=== PATIENT | female | born 1940 | race Caucasian/White ===

== ENCOUNTER 2018-03-26 13:36 | Inpatient (IN) ==
--- NOTE | 2018-03-26 14:41 | Emergency Department Note ---
Disposition Clinical Impression: Accelerated hypertension, Hypertensive urgency Disposition: Admitted As Inpatient Condition: Fair Time of Disposition: 18:36 General Adult HPI - General Chief complaint: ED General Medical Stated complaint: htn/dizziness Time Seen by Provider: 03/26/18 14:04 Source: patient Limitations: no limitations Nursing Notes Reviewed: Yes Vital Signs Reviewed: Yes - History of Present Illness HPI Narrative: 77-year-old female history of hypertension and endometrial cancer s/p hysterectomy and chemoradiation presents an emergency department for elevated blood pressure and lightheadedness. Patient was at the cancer center for her six-month follow up with Dr. Ray. Patient had a significantly elevated blood pressure there. Was sent here for further evaluation and she has been complaining of a headache as well as lightheadedness nearly fainting a few times over the past few weeks. Patient reports her blood pressure typically runs high in about a week ago was seen at her primary care physician's office where those also high greater than 200 and was placed on additional medication losartan. Patient states she is been taken her blood pressure medications as prescribed but continues to have elevated blood pressure readings. She states about a week ago while at a outdoor event she felt lightheaded when she stood up in required to sit down prior to falling or passing out. She states almost every time she stands up she needs to wait a few seconds she feels lightheaded. At one point she does state that she has not dizziness with room spinning that has resulted 2 weeks ago. She reports a history of vertigo. She denies any fall ahead injury. Denies any blurry vision. Denies any kidney issues. No issues with urination. Denies any chest pain or shortness of breath. Denies any recent illness. Since her radiation to her pelvic region she has had issues with diarrhea. Reports a normal diet. Her antihypertensive medications including his losartan and metoprolol. Her blood pressure is significantly elevated here systolic 220. Her heart rate is in the 60s to 70s. Denies history of stroke. Pain Scale: 6 - Related Data Home Medications Medication Instructions Recorded Confirmed Diphenoxylate/Atropine [Lomotil] 1 each PO QID PRN 08/18/15 03/26/18 Alendronate Sodium [Fosamax] 70 mg PO QWEEK 02/13/17 03/26/18 Ferrous Sulfate [Iron] 325 mg PO DAILY 02/13/17 03/26/18 Magnesium Oxide [Magnesium] 250 mg PO DAILY 02/13/17 03/26/18 Metoprolol XL (24 HR) Succ [Toprol 100 mg PO DAILY 02/13/17 03/26/18 XL] Potassium Chloride [K-Tab ER] 20 meq PO TID PRN 02/13/17 03/26/18 Aspirin [Lo-Dose Aspirin EC] 81 mg PO DAILY 03/26/18 03/26/18 Valsartan [Valsartan] 40 mg PO DAILY 03/26/18 03/26/18 Previous Rx's Medication Instructions Recorded Calcium Carbonate/Vitamin D3 1 each PO BID #60 capsule 03/27/17 [Calcium 600 + Vit D Softgel] Letrozole [Femara] 2.5 mg PO DAILY #30 tablet 03/27/17 Oxycodone HCl [Oxaydo] 5 mg PO HS PRN #30 tablet.orl 03/27/17 Cyanocobalamin (B-12) [Vitamin B12] 1,000 mcg IM QMONTH #1 vial 09/25/17 Allergies Allergy/AdvReac Type Severity Reaction Status Date / Time doxorubicin AdvReac Unknown unknown Verified 03/26/18 17:13 All systems ED: reviewed and negative except as stated. Review of Systems: As Per HPI Constitutional: Denies: fever, chills, weakness Eyes: Denies: vision change ENT ED: Denies: congestion Cardiovascular: Denies: chest pain, palpitations, dyspnea on exertion, syncope Respiratory: Denies: cough, dyspnea Gastrointestinal: Denies: abdominal pain, nausea, vomiting Past Medical History - Past Medical History Attestation: Yes The following information was validated with the patient. Source: patient Medical history: Reports: arthritis, cancer, hypertension, kidney stones, other Surgical history: Reports: cancer surgery, hysterectomy, orthopedic, other Psychiatric history: Reports: no psych history - Social History Smoking Status: Never smoker Smokeless Tobacco Status: No Alcohol use: Reports: none Drug use: Reports: none Physical Exam - General Limitations: no limitations General appearance: alert - Head Head exam: atraumatic, normocephalic, normal inspection - Eye Eye exam: Present: normal appearance, PERRL, EOMI - ENT ENT exam: normal exam, normal oropharynx, mucous membranes moist - Neck Neck exam: Present: normal inspection, full ROM, trachea midline - Chest Chest inspection: Present: normal inspection, symmetric chest wall rise. Absent : tenderness, rash - Respiratory Respiratory exam: Present: normal lung sounds bilaterally. Absent: respiratory distress, wheezes - Cardiovascular Cardiovascular exam: Present: regular rate, normal rhythm, normal heart sounds. Absent: systolic murmur, diastolic murmur - Expanded Cardiovascular Exam Peripheral pulses: 2+: radial (R), radial (L) - Abdominal Exam Abdominal exam: Present: soft, Non-Tender, normal bowel sounds. Absent: tenderness, distention, guarding, rebound, rigidity - Extremities Exam Extremities exam: Present: normal inspection, full ROM, normal capillary refill. Absent: tenderness, pedal edema - Back Exam Back exam: Present: normal inspection, full ROM. Absent: tenderness - Neurological Exam Neurological exam: Present: alert, oriented X3, CN II-XII intact - Expanded Neurological Exam Patient oriented to: Present: person, place, time Speech: Present: fluid speech Cranial nerves: EOM function (II, III, IV, ): Normal, facial sensation (V): Normal, facial palsy (VII): Normal, gag reflex (IX): Normal, spinal accessory function (XI): Normal, tongue deviation (XII): Normal Motor strength - LUE: 5/5 Motor strength - RUE: 5/5 Motor strength - LLE: 5/5 Motor strength - RLE: 5/5 Upper motor neuron exam: ryan neglect: Absent bilaterally, pronator drift: Absent bilaterally Sensory exam upper extremity: light touch: Normal Sensory exam lower extremity: light touch: Normal - Psychiatric Psychiatric exam: Present: normal affect, normal mood - Skin Skin exam: Present: warm, dry, intact, normal color. Absent: rash, cyanosis, diaphoresis Course Course Narrative: Patient does not appear dehydrated. Mucosal membranes are moist. Heart is regular rate and rhythm. Neurologic exam is normal without any focal neural deficits. No neck pain. She has some baseline weakness or lower extremities which she attributes to her bad knees. She has a history of a prior right total knee replacement. Given reports of near syncopal episodes over the past few weeks will get a chest x-ray basic labs in EKG including a CT of the head. Patient is agreeable to this plan. Any signs of an organ damage we will aggressively lower the blood pressure. - Reevaluation(s) Reevaluation #1: CT of the head did not reveal any intracranial abnormality. Patient does report some ringing in the years that she describes as crickets. This is been ongoing for past several weeks. She does report some changes in her hearing. She takes aspirin daily basis but not more. She denies any dizziness. Review for labs unremarkable. No signs of an organ damage. Troponin lesson 0.03. Creatinine within normal limits. Patient was able to urinate without difficulty. Neurologic exam without any focal neural deficits. Patient will require further monitoring and management of her blood pressure as it has remained significantly high over the past several days. Will attempt to lower her blood pressure slowly and gradually to a goal of systolic 160 to 180. Patient will be placed on the nicardipine drip. Impression is hypertensive urgency. - Consultations Consultation #1: Spoke with on-call hospitalist celestino Petty to admit for accelerated hypertension and hypertensive urgency. No further orders at this time Agree with placement to step down unit with close monitoring of BP to goal of SBP 180. Patient placed on Nicardipine drip after Clonidine brought SBP to 206. Time: 18:36 Vital Signs Temperature 98.2 F 03/26/18 13:55 Pulse Rate 65 03/26/18 13:55 Respiratory Rate 66 03/26/18 13:55 Blood Pressure 224/98 03/26/18 13:55 O2 Sat by Pulse Oximetry 98 03/26/18 13:55 Temperature 98.2 F 03/26/18 13:55 Pulse Rate 63 03/26/18 19:59 Respiratory Rate 16 03/26/18 19:59 Blood Pressure 113/61 03/26/18 19:59 O2 Sat by Pulse Oximetry 95 03/26/18 19:59 Oxygen Delivery Oxygen Delivery Room Air Medical Decision Making - MDM Narrative Medical decision making narrative: Patient was discussed with my attending physician who agrees with ED management and final disposition. They independently evaluated the patient. Please refer to their attestation to this encounter for additional information. This note was generated by [employer] voice recognition software and as a result grammatical or spelling errors may occur using this program. - Medical Records Medical records reviewed: Yes I reviewed the patient's medical records. - Lab Data Lab results reviewed: Yes I reviewed the patient's lab results. Result diagrams: 03/26/18 19:28 03/26/18 15:15 Lab Results 03/26/18 03/26/1803/26/18 Range/Units 15:15 15:15 15:15 WBC (4.3-11.1) K/mcL RBC (3.82-4.97) M/mcL Hgb (11.5-15.4) g/dL Hct (35.3-44.9) % MCV (83.0-100.0) fL MCH (28.0-33.3) pg MCHC (31.6-35.5) g/dL RDW (11.5-14.5) % Plt Count (140-400) K/mcL MPV (9.4-12.4) fL Immature Gran % (0-4) % Seg Neutrophils % % Lymphocytes % % Monocytes % % Eosinophils % % Basophils % % Neutrophils # (1.6-8.9) K/mcL Lymphocytes # (0.6-4.6) K/mcL Monocytes # (0.0-1.3) K/mcL Eosinophils # (0.0-0.6) K/mcL Basophils # (0.0-0.2) K/mcL PT 11.0 (9.4-12.1) Seconds INR 1.0 APTT 29.8 (26.0-36.0) Seconds Sodium 141 (136-145) mEq/L Potassium 3.5 (3.5-5.1) mEq/L Chloride 106 (98-107) mEq/L Carbon Dioxide 27 (23-29) mEq/L BUN 18 (8-23) mg/dL Creatinine 0.87 (0.60-1.20) mg/dL Est GFR ( Amer) > 60 (> 60) Est GFR (Non-Af Amer) > 60 (> 60) BUN/Creatinine Ratio 21 (6-26) Glucose 96 (70-105) mg/dL Calculated Osmolality 294 (280-300) Calcium 9.9 (8.6-10.3) mg/dL Total Bilirubin 0.5 (0.3-1.0) mg/dL Direct Bilirubin 0.1 (0.0-0.2) mg/dL Indirect Bilirubin 0.4 (0.0-1.2) mg/dL AST 15 (13-39) Units/L ALT 16 (7-52) Units/L Alkaline Phosphatase 87 (34-104) Units/L Troponin I < 0.03 (< 0.04) ng/mL B-Natriuretic Peptide 100 H (Less than 100) pg/mL Serum Total Protein 7.2 (6.4-8.9) g/dL Albumin 4.2 (3.5-5.7) g/dL Globulin 3.0 (2.4-3.5) g/dL Albumin/Globulin Ratio 1.4 (1.1-2.2) 03/26/18 Range/Units 19:28 WBC 6.7 (4.3-11.1) K/mcL RBC 4.76 (3.82-4.97) M/mcL Hgb 13.5 (11.5-15.4) g/dL Hct 40.1 (35.3-44.9) % MCV 84.2 (83.0-100.0) fL MCH 28.4 (28.0-33.3) pg MCHC 33.7 (31.6-35.5) g/dL RDW 13.8 (11.5-14.5) % Plt Count 252 (140-400) K/mcL MPV 10.0 (9.4-12.4) fL Immature Gran % 0.4 (0-4) % Seg Neutrophils % 68.7 % Lymphocytes % 21.7 % Monocytes % 6.4 % Eosinophils % 2.2 % Basophils % 0.6 % Neutrophils # 4.6 (1.6-8.9) K/mcL Lymphocytes # 1.5 (0.6-4.6) K/mcL Monocytes # 0.4 (0.0-1.3) K/mcL Eosinophils # 0.2 (0.0-0.6) K/mcL Basophils # 0.0 (0.0-0.2) K/mcL PT (9.4-12.1) Seconds INR APTT (26.0-36.0) Seconds Sodium (136-145) mEq/L Potassium (3.5-5.1) mEq/L Chloride (98-107) mEq/L Carbon Dioxide (23-29) mEq/L BUN (8-23) mg/dL Creatinine (0.60-1.20) mg/dL Est GFR ( Amer) (> 60) Est GFR (Non-Af Amer) (> 60) BUN/Creatinine Ratio (6-26) Glucose (70-105) mg/dL Calculated Osmolality (280-300) Calcium (8.6-10.3) mg/dL Total Bilirubin (0.3-1.0) mg/dL Direct Bilirubin (0.0-0.2) mg/dL Indirect Bilirubin (0.0-1.2) mg/dL AST (13-39) Units/L ALT (7-52) Units/L Alkaline Phosphatase (34-104) Units/L Troponin I (< 0.04) ng/mL B-Natriuretic Peptide (Less than 100) pg/mL Serum Total Protein (6.4-8.9) g/dL Albumin (3.5-5.7) g/dL Globulin (2.4-3.5) g/dL Albumin/Globulin Ratio (1.1-2.2) - Radiology Data Radiology results reviewed: Yes I reviewed the patient's radiology results. Chest X-Ray 03/26/18 14:01 IMPRESSION: No acute findings in the chest. D/ / Aries Colón MD / Aries Colón MD Interpreting Provider: Aries Colón MD Head CT 03/26/18 14:38 IMPRESSION: No acute intracranial abnormality. Diffuse atrophic changes with findings suggesting chronic microvascular ischemia D/ / Aries Reyes MD / Aries Reyes MD Interpreting Provider: Aries Reyes MD - EKG Data EKG #1 EKG attestation: Yes I reviewed and interpreted this EKG. EKG results narrative: EKG performed 1417 normal sinus rhythm 62 bpm, left atrial enlargement, no ST elevation or depression, no T-wave version. Intervals appear within normal limits. No acute ischemic changes. No old EKG available for comparison at this time.
[2018-03-26 15:52] LABS: Activated Partial Thrombo Time 29.8 Seconds (26.0-36.0); Alanine Aminotransferase 16 Units/L (7-52); Albumin 4.2 g/dL (3.5-5.7); Albumin/Globulin Ratio 1.4 (1.1-2.2); Alkaline Phosphatase 87 Units/L (34-104); Aspartate Amino Transferase 15 Units/L (13-39); BUN/Creatinine Ratio 21 (6-26); Bilirubin,Direct 0.1 mg/dL (0.0-0.2); Bilirubin,Indirect 0.4 mg/dL (0.0-1.2); Bilirubin,Total 0.5 mg/dL (0.3-1.0); Blood Urea Nitrogen 18 mg/dL (8-23); Calcium 9.9 mg/dL (8.6-10.3); Carbon Dioxide 27 mEq/L (23-29); Chloride 106 mEq/L (98-107); Glucose 96 mg/dL (70-105); Osmolality,Calculated 294 (280-300); Potassium 3.5 mEq/L (3.5-5.1); Sodium 141 mEq/L (136-145); Total Protein 7.2 g/dL (6.4-8.9); Troponin I < 0.03 ng/mL (< 0.04); eGFR For African Americans > 60 (> 60); eGFR For Non-African Americans > 60 (> 60)
[2018-03-26] MEDS ORDERED: cloNIDine HCl 0.1 MG TABLET PO ONE (16:06)
--- NOTE | 2018-03-26 18:36 | Emergency Department Note ---
Disposition Clinical Impression: Hypertensive urgency Disposition: Admitted As Inpatient Condition: Fair Referrals: Honorio Black MD [Primary Care Provider] - Forms: ED Satisfaction Letter, Work/School Release General Adult HPI - General Chief complaint: ED General Medical Stated complaint: htn/dizziness Time Seen by Provider: 03/26/18 14:04 Source: patient Mode of arrival: ambulatory Limitations: no limitations Nursing Notes Reviewed: Yes Vital Signs Reviewed: Yes - History of Present Illness Pain Scale: 6 - Related Data Home Medications Medication Instructions Recorded Confirmed Diphenoxylate/Atropine [Lomotil] 1 each PO QID PRN 08/18/15 03/26/18 Alendronate Sodium [Fosamax] 70 mg PO QWEEK 02/13/17 03/26/18 Ferrous Sulfate [Iron] 325 mg PO DAILY 02/13/17 03/26/18 Magnesium Oxide [Magnesium] 250 mg PO DAILY 02/13/17 03/26/18 Metoprolol XL (24 HR) Succ [Toprol 100 mg PO DAILY 02/13/17 03/26/18 XL] Potassium Chloride [K-Tab ER] 20 meq PO TID PRN 02/13/17 03/26/18 Aspirin [Lo-Dose Aspirin EC] 81 mg PO DAILY 03/26/18 03/26/18 Valsartan [Valsartan] 40 mg PO DAILY 03/26/18 03/26/18 Previous Rx's Medication Instructions Recorded Calcium Carbonate/Vitamin D3 1 each PO BID #60 capsule 03/27/17 [Calcium 600 + Vit D Softgel] Letrozole [Femara] 2.5 mg PO DAILY #30 tablet 03/27/17 Oxycodone HCl [Oxaydo] 5 mg PO HS PRN #30 tablet.orl 03/27/17 Cyanocobalamin (B-12) [Vitamin B12] 1,000 mcg IM QMONTH #1 vial 09/25/17 Allergies Allergy/AdvReac Type Severity Reaction Status Date / Time doxorubicin AdvReac Unknown unknown Verified 03/26/18 17:13 Constitutional: Denies: fever, chills, weakness Eyes: Denies: vision change ENT ED: Denies: congestion Cardiovascular: Denies: chest pain, palpitations, dyspnea on exertion, syncope Respiratory: Denies: cough, dyspnea Gastrointestinal: Denies: abdominal pain, nausea, vomiting Past Medical History - Past Medical History Medical history: Reports: arthritis, cancer, hypertension, kidney stones, other Surgical history: Reports: cancer surgery, hysterectomy, orthopedic, other Psychiatric history: Reports: no psych history - Social History Smoking Status: Never smoker Smokeless Tobacco Status: No Alcohol use: Reports: none Drug use: Reports: none Physical Exam - General Limitations: no limitations General appearance: alert Course Vital Signs Temperature 98.2 F 03/26/18 13:55 Pulse Rate 65 03/26/18 13:55 Respiratory Rate 66 03/26/18 13:55 Blood Pressure 224/98 03/26/18 13:55 O2 Sat by Pulse Oximetry 98 03/26/18 13:55 Temperature 98.2 F 03/26/18 13:55 Pulse Rate 61 03/26/18 15:59 Respiratory Rate 16 03/26/18 15:59 Blood Pressure 217/109 03/26/18 15:59 O2 Sat by Pulse Oximetry 95 03/26/18 15:59 Oxygen Delivery Oxygen Delivery Room Air Medical Decision Making - Lab Data Result diagrams: 03/26/18 15:15 Lab Results 03/26/18 03/26/18 03/26/18 Range/Units 15:15 15:15 15:15 PT 11.0 (9.4-12.1) Seconds INR 1.0 APTT 29.8 (26.0-36.0) Seconds Sodium 141 (136-145) mEq/L Potassium 3.5 (3.5-5.1) mEq/L Chloride 106 (98-107) mEq/L Carbon Dioxide 27 (23-29) mEq/L BUN 18 (8-23) mg/dL Creatinine 0.87 (0.60-1.20) mg/dL Est GFR ( Amer) > 60 (> 60) Est GFR (Non-Af Amer) > 60 (> 60) BUN/Creatinine Ratio 21 (6-26) Glucose 96 (70-105) mg/dL Calculated Osmolality 294 (280-300) Calcium 9.9 (8.6-10.3) mg/dL Total Bilirubin 0.5 (0.3-1.0) mg/dL Direct Bilirubin 0.1 (0.0-0.2) mg/dL Indirect Bilirubin 0.4 (0.0-1.2) mg/dL AST 15 (13-39) Units/L ALT 16 (7-52) Units/L Alkaline Phosphatase 87 (34-104) Units/L Troponin I < 0.03 (< 0.04) ng/mL B-Natriuretic Peptide 100 H (Less than 100) pg/mL Serum Total Protein 7.2 (6.4-8.9) g/dL Albumin 4.2 (3.5-5.7) g/dL Globulin 3.0 (2.4-3.5) g/dL Albumin/Globulin Ratio 1.4 (1.1-2.2) Attestation Statement - Attestation Attestation: I, Howie Conway, examined this patient and my medical decision-making was reviewed with the CORPORATE LOGISTICS MANAGER/PA/Advanced Practice Nurse/Resident Physician. I agree with the documented findings, disposition and treatment plan as described except to the extent set forth below. 77-year-old female presents emergency Department with concerns of elevated blood pressure. Patient states she has had intermittent lightheadedness and tinnitus over the past 2 weeks. She was initially evaluated by her primary care doctor 1 week ago who started her on valsartan in addition to her Toprol. Patient reports he had been taking the medication. Fully however her blood pressure had not improved. Today she was at a routine follow-up in the cancer center when she had elevated blood pressure. They sent her into the emergency department for further evaluation. Initial troponin negative. No focal neurologic deficits on exam. CT of the head was negative for acute abnormality. Chest x-ray did not show acute abnormality. BP had apparently been elevated for over a week. It did not improve with observation emergency department. Patient was given clonidine without significant improvement of symptoms. Nicardipine drip was then started to control blood pressure. Patient admitted to hospitalist for further care and evaluation.
[2018-03-26] MEDS: niCARdipine 40 MG/200 ML MLS IVC SCH (19:15)
--- NOTE | 2018-03-26 19:18 | Internal Med History&Physical ---
Date of Encounter: 03/26/18 Time of Encounter: 19:17 Internal Medicine - H&P: HPI Chief complaint: sent from oncologist with high BP Admitted From: Emergency Dept Plans for Post Hospital Care: Home History of present illness: Ms. Tam is a 77 year old female with pmh of htn, endometrial cancer, DJD who was sent from her oncologist office she had a 6 month follow-up there and was found to have elevated systolic blood pressure in the 200s. She was sent to the ED and drove herself. Upon presentation her blood pressure was 224/98. She was given clonidine by mouth and was put on a Cardene drip. The patient does not check her blood pressure at home but has been dealing with some frontal headache and occipital headache for multiple months now. She also describes feeling of dizziness but no syncopal episodes also for a few months. Denies any fever, chills, nausea, vomiting, chest pain, shortness of breath, abdominal pain, urinary symptoms, or neurological symptoms. The patient laboratory workup in the ED however no CBC was done. Past Med Surg Social Fam HX - Past Medical History Medical history: arthritis, cancer, hypertension, kidney stones, other Psychiatric history: no psych history - Past Surgical History Surgical History: cancer surgery, hysterectomy, orthopedic, other - Social History Smoking Status: Never smoker Smokeless Tobacco Status: No Alcohol use: none Drug use: none Internal Medicine - H&P: Meds Diphenoxylate/Atropine [Lomotil] 1 each PO QID PRN 08/18/15 [History] Alendronate Sodium [Fosamax] 70 mg PO QWEEK 02/13/17 [History] Ferrous Sulfate [Iron] 325 mg PO DAILY 02/13/17 [History] Magnesium Oxide [Magnesium] 250 mg PO DAILY 02/13/17 [History] Metoprolol XL (24 HR) Succ [Toprol XL] 100 mg PO DAILY 02/13/17 [History] Potassium Chloride [K-Tab ER] 20 meq PO TID PRN 02/13/17 [History] Calcium Carbonate/Vitamin D3 [Calcium 600 + Vit D Softgel] 1 each PO BID #60 capsule 03/27/17 [Rx] Letrozole [Femara] 2.5 mg PO DAILY #30 tablet 03/27/17 [Rx] Oxycodone HCl [Oxaydo] 5 mg PO HS PRN #30 tablet.orl 03/27/17 [Rx] Cyanocobalamin (B-12) [Vitamin B12] 1,000 mcg IM QMONTH #1 vial 09/25/17 [Rx] Aspirin [Lo-Dose Aspirin EC] 81 mg PO DAILY 03/26/18 [History] Valsartan [Valsartan] 40 mg PO DAILY 03/26/18 [History] 3 Allergy/AdvReac Type Severity Reaction Status Date / Time doxorubicin AdvReac Unknown unknown Verified 03/26/18 17:13 All Systems PM: A 10-system review of systems was performed and is negative for pertinent findings except as documented above in the HPI. Review of systems: All systems reviewed are negative except as mentioned above - Constitutional Vitals: Temp Pulse Resp BP Pulse Ox 98.2 F 61 16 217/109 95 03/26/18 13:55 03/26/18 15:59 03/26/18 15:59 03/26/18 15:59 03/26/18 15:59 Exam: GEN: NAD HEENT: AT, NC, No cyanosis, oral mucosa is moist, No JVD Lymphatics: No lymphadenoapthy Eyes: Extrocular muscles intact, anicteric CVS:RRR. S1, S2, No m/r/g RESP: CTAB ABD: Soft, NT, ND, +BS EXT: No edema, No rashes, 2+ DP NEURO: Nonfocal, CN II-XII intact, No focal motor or sensory deficits Psych: Cooperative, Not anxious or depressed Internal Med - H&P Results - Labs CBC & Chem 7: 03/26/18 15:15 Labs: BMP 03/26/18 15:15 Sodium 141 Potassium 3.5 Chloride 106 Carbon Dioxide 27 BUN 18 Creatinine 0.87 Glucose 96 Calcium 9.9 Cardiac Enzymes 03/26/18 Range/Units 15:15 Troponin I < 0.03 (< 0.04) ng/mL Liver Function 03/26/18 Range/Units 15:15 Total Bilirubin 0.5 (0.3-1.0) mg/dL Direct Bilirubin 0.1 (0.0-0.2) mg/dL AST 15 (13-39) Units/L ALT 16 (7-52) Units/L Alkaline Phosphatase 87 (34-104) Units/L Albumin 4.2 (3.5-5.7) g/dL - Impressions ITS Impressions Chest X-Ray 03/26/18 14:01 IMPRESSION: No acute findings in the chest. D/ / Aries Colón MD / Aries Colón MD Interpreting Provider: Aries Colón MD Head CT 03/26/18 14:38 IMPRESSION: No acute intracranial abnormality. Diffuse atrophic changes with findings suggesting chronic microvascular ischemia D/ / Aries Reyes MD / Aries Reyes MD Interpreting Provider: Aries Reyes MD - Assessment and plan (1) Hypertensive urgency Current Visit: Yes Status: Acute Assessment and plan: Patient seems to have had blood pressure for some time now based on her symptoms. She does not check blood pressure at home. Continue Cardene drip started in the ED. I have added Norvasc 5 mg daily. Increased valsartan to 80 mg and 12 mg daily. We will add IV hydralazine when necessary. The goal is to bring the systolic blood pressure to around 180s by tomorrow. We will check an echocardiogram as well. (2) Dizziness Current Visit: Yes Status: Acute Assessment and plan: I think most of her symptoms are likely stemming from uncontrolled hypertension. We will check an echocardiogram for now. We will try to achieve better blood pressure control. 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 Ray. Continue letrozole (4) DVT prophylaxis Current Visit: Yes Status: Acute Assessment and plan: Heparin subcutaneous - Time Spent With Patient Total time spent is greater than 50% in coordination of care (as documented) at patient's floor/unit and/or counseling patient:
[2018-03-26] MEDS ORDERED: Ondansetron 4 MG/2 ML VIAL IVP PRN (19:20)
[2018-03-26] MEDS ORDERED: *HR* OxyCODONE Immed Rel 5 MG TABLET PO PRN (19:21)
[2018-03-26] MEDS ORDERED: Naloxone 0.4 MG/ML INJ IVP PRN (19:21)
[2018-03-26] MEDS ORDERED: Acetaminophen 325 MG TABLET PO PRN (19:21)
[2018-03-26] MEDS ORDERED: Cyanocobalamin (B-12) 1,000 MCG/ML VIAL IM SCH (19:30)
[2018-03-26 19:59] LABS: Basophils % 0.6 %; Eosinophils # 0.2 K/mcL (0.0-0.6); Eosinophils % 2.2 %; Hematocrit 40.1 % (35.3-44.9); Hemoglobin 13.5 g/dL (11.5-15.4); Immature Granulocytes % 0.4 % (0-4); Lymphocytes # 1.5 K/mcL (0.6-4.6); Lymphocytes % 21.7 %; Mean Corpuscular HGB Conc 33.7 g/dL (31.6-35.5); Mean Corpuscular Hemoglobin 28.4 pg (28.0-33.3); Mean Corpuscular Volume 84.2 fL (83.0-100.0); Monocytes # 0.4 K/mcL (0.0-1.3); Monocytes % 6.4 %; Neutrophils # 4.6 K/mcL (1.6-8.9); Platelet Count 252 K/mcL (140-400); Red Blood Count 4.76 M/mcL (3.82-4.97); Red Cell Distribution Width 13.8 % (11.5-14.5); Segmented Neutrophils % 68.7 %
[2018-03-26] MEDS: *HR* Heparin 5,000 UNIT/ML VIAL SQ SCH (22:40)
[2018-03-26] MEDS: amLODIPine 5 MG TABLET PO SCH (22:40)
[2018-03-26] MEDS: Valsartan 80 MG TABLET PO SCH (22:40)
[2018-03-27] MEDS: niCARdipine 40 MG/200 ML MLS IVC SCH ×3 (04:21→18:34)
[2018-03-27] MEDS: *HR* Heparin 5,000 UNIT/ML VIAL SQ SCH ×3 (05:18→21:58)
[2018-03-27 05:28] LABS: Basophils % 0.4 %; Eosinophils # 0.2 K/mcL (0.0-0.6); Eosinophils % 1.8 %; Hematocrit 39.3 % (35.3-44.9); Hemoglobin 12.9 g/dL (11.5-15.4); Immature Granulocytes % 0.5 % (0-4); Lymphocytes # 1.2 K/mcL (0.6-4.6); Mean Corpuscular HGB Conc 32.8 g/dL (31.6-35.5); Mean Corpuscular Hemoglobin 27.5 pg (28.0-33.3); Mean Corpuscular Volume 83.8 fL (83.0-100.0); Mean Platelet Volume 9.9 fL (9.4-12.4); Monocytes # 0.5 K/mcL (0.0-1.3); Monocytes % 6.4 %; Neutrophils # 6.2 K/mcL (1.6-8.9); Platelet Count 239 K/mcL (140-400); Red Blood Count 4.69 M/mcL (3.82-4.97); Segmented Neutrophils % 75.9 %
[2018-03-27 05:46] LABS: BUN/Creatinine Ratio 21 (6-26); Blood Urea Nitrogen 18 mg/dL (8-23); Calcium 9.4 mg/dL (8.6-10.3); Carbon Dioxide 24 mEq/L (23-29); Chloride 108 mEq/L (98-107); Glucose 103 mg/dL (70-105); Magnesium 1.6 mg/dL (1.6-2.6); Osmolality,Calculated 294 (280-300); Potassium 3.4 mEq/L (3.5-5.1); Sodium 141 mEq/L (136-145); eGFR For African Americans > 60 (> 60); eGFR For Non-African Americans > 60 (> 60)
[2018-03-27] MEDS: Valsartan 80 MG TABLET PO SCH (08:41)
[2018-03-27] MEDS: Aspirin Enteric Coated 81 MG Tablet PO SCH (08:41)
[2018-03-27] MEDS: amLODIPine 5 MG TABLET PO SCH (08:41)
[2018-03-27] MEDS: Metoprolol XL (24 HR) Succ 50 MG TAB.ER.24H PO SCH (08:41)
[2018-03-27] MEDS: Letrozole 2.5 MG TABLET PO SCH (08:42)
[2018-03-27] MEDS: Cholecalciferol (D-3) 1,000 UNIT TABLET PO SCH (08:42)
--- NOTE | 2018-03-27 09:37 | Electrocardiograph Report ---
[place] Test Date: 2018-03-26 Pat Name: Yvonne Tam Department: 102 Room: 2N13 Gender: F Journal Box Inspector: : 1940 Requested By: Yaron Beasley Order Number: [id number] Reading MD: Karyn Mendez Measurements Intervals [place] Rate: 62 P: 45 ME: 194 QRS: -17 QRSD: 97 T: 30 QT: 360 QTc: 365 Interpretive Statements SINUS RHYTHM POSSIBLE LEFT ATRIAL ENLARGEMENT [-0.1mV P WAVE IN V1/V2] POSSIBLE LEFT VENTRICULAR HYPERTROPHY [VOLTAGE CRITERIA PLUS LAE OR QRS WIDENING] Left axis deviation Electronically Signed On 03-27-2018 7:20:00 EDT by Karyn Mendez
--- NOTE | 2018-03-28 00:17 | Internal Med Progress Note ---
Date of Encounter: 03/27/18 Time of Encounter: 18:00 - Assessment and plan (1) Accelerated hypertension Current Visit: Yes Status: Acute Assessment and plan: Her blood pressure is under better control. It seems to be idiopathic. Cardene drip has been stopped. We will continue Toprol-XL, Diovan and amlodipine. (2) Stool incontinence Current Visit: Yes Status: Acute Assessment and plan: I feel that we should offer this lady CT of the abdomen and pelvis, when she is in the hospital. She has a visit to a specialist scheduled. 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 (4) Acute hypokalemia Current Visit: Yes Status: Acute Assessment and plan: It is likely due to treatment with antihypertensives. Her stool incontinence is also adding to that problem. We will give her supplemental potassium chloride. - Time Spent With Patient Total time spent is greater than 50% in coordination of care (as documented) at patient's floor/unit and/or counseling patient: 25 - 35 minutes - Subjective Interval history: The patient's blood pressure seems to be under better control. Her headache as well as dizziness/lightheadedness subsided. She tells me about her stool incontinence. It started about 3 years ago. It seems to be getting progressively worse. Currently, she may have stool incontinence nearly every day. Recently, her PCP who referred her to a specialist. She uses diapers daily. She has not had any imaging studies of her abdomen/ pelvis recently. - Constitutional Vitals: Temp Pulse Resp BP Pulse Ox 97.8 F 73 16 130/68 95 03/27/18 23:32 03/27/18 23:32 03/27/18 23:32 03/27/18 23:32 03/27/18 23:32 General appearance: Present: A&O X 3, no acute distress - Respiratory Respiratory exam: Present: CTAB. Absent: rales, rhonchi, wheezes - Cardiovascular Cardiovascular exam: Present: RRR. Absent: distant heart sounds, gallop, systolic murmur - GI/Abdominal GI/Abdominal exam: Present: soft. Absent: mass, splenomegaly - Skin Skin exam: Present: dry, intact Internal Medicine: Result - Labs CBC & Chem 7: 03/27/18 05:04 03/27/18 05:04 Labs: Short CBC 03/27/18 Range/Units 05:04 WBC 8.1 (4.3-11.1) K/mcL Hgb 12.9 (11.5-15.4) g/dL Hct 39.3 (35.3-44.9) % Plt Count 239 (140-400) K/mcL Neutrophils # 6.2 (1.6-8.9) K/mcL BMP 03/27/18 05:04 Sodium 141 Potassium 3.4 L Chloride 108 H Carbon Dioxide 24 BUN 18 Creatinine 0.87 Glucose 103 Calcium 9.4 - ABG Interpretation ABG results: PT/INR, D-dimer PT 11.0 Seconds (9.4-12.1) 03/26/18 15:15 - Impressions Impressions Echocardiogram 03/27/18 19:21 Impressions: LVEF 60%. Mild left ventricular diastolic dysfunction. Normal right ventricular structure and function. Mild aortic regurgitation. Mild tricuspid regurgitation. No pulmonary hypertension by TR gradient. IVC not optimally visualized. Left Ventricular Wall Motion: Rest Echo Findings All wall segments showed normal motion. Findings: Study Quality * Technically adequate exam. ECG Findings * Normal sinus rhythm. Left Ventricle * LVEF 60%. * Normal LV chamber size, wall thickness and function. * Mild left ventricular diastolic dysfunction. Right Ventricle * Normal right ventricular structure and function. Left Atrium * Mildly dilated left atrium. Right Atrium * Normal right atrial size. Aortic Valve * Trileaflet aortic valve. * Mildly thickened aortic valve leaflets. * No aortic stenosis. * Mild aortic regurgitation. Mitral Valve * No mitral stenosis. * Trace mitral regurgitation. * Normal mitral valve structure. Tricuspid Valve * Tricuspid valve not well visualized. * Mild tricuspid regurgitation. Pulmonic Valve * Pulmonic valve is not well visualized. * No pulmonic stenosis. * No pulmonic regurgitation. Pulmonary Artery * Pulmonary artery not well visualized. Aorta * Normally sized aortic root. Pericardium * There is no pericardial effusion present. Interatrial Septum * No evidence of PFO by color Doppler. IVC * The IVC is not well evaluated. - VTE Reasons for not Prescribing Prophylaxis: Treatment not Indicated - Low risk for VTE Consult Discharge Plan - Plan Referrals: Honorio Black MD [Primary Care Provider] - 04/10/18 2:45 pm
[2018-03-28] MEDS ORDERED: Isovue-370 500 ML INFUS..BTL IV ONE (00:33)
[2018-03-28] MEDS: *HR* Heparin 5,000 UNIT/ML VIAL SQ SCH ×3 (06:41→19:58)
[2018-03-28] MEDS: niCARdipine 40 MG/200 ML MLS IVC SCH (08:03)
[2018-03-28] MEDS: Aspirin Enteric Coated 81 MG Tablet PO SCH (08:10)
[2018-03-28] MEDS: Metoprolol XL (24 HR) Succ 50 MG TAB.ER.24H PO SCH (08:11)
[2018-03-28] MEDS: Cholecalciferol (D-3) 1,000 UNIT TABLET PO SCH (08:11)
[2018-03-28] MEDS: Valsartan 80 MG TABLET PO SCH (08:11)
[2018-03-28] MEDS: amLODIPine 5 MG TABLET PO SCH (08:11)
[2018-03-28] MEDS: Letrozole 2.5 MG TABLET PO SCH (08:11)
[2018-03-28] MEDS: Cholestyramine 4 GM POWD.PACK PO SCH ×2 (16:22→19:58)
--- NOTE | 2018-03-28 23:53 | Internal Med Progress Note ---
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 Her headache as well as dizziness/lightheadedness subsided. She tells me about her stool incontinence. It started about 3 years ago. It seems to be getting progressively worse. Currently, she may have stool incontinence nearly every day. Recently, her PCP who referred her to a specialist. She uses diapers daily. She has not had any imaging studies of her abdomen/ pelvis recently. - Constitutional Vitals: Temp Pulse Resp BP Pulse Ox 98.1 F 71 16 174/89 97 03/28/18 23:35 03/28/18 23:35 03/28/18 23:35 03/28/18 23:35 03/28/18 23:35 General appearance: Present: A&O X 3, no acute distress Internal Medicine: Result - Labs CBC & Chem 7: 03/27/18 05:04 03/27/18 05:04 - ABG Interpretation ABG results: PT/INR, D-dimer PT 11.0 Seconds (9.4-12.1) 03/26/18 15:15 - Impressions Impressions Abdomen/Pelvis CT 03/28/18 09:30 IMPRESSION: Intrahepatic ductal dilatation is stable. Left adrenal mass, unchanged. Multiple renal lesions are again noted, likely cysts. Diverticulosis throughout the colon Multifocal colonic wall thickening is noted, greatest in the sigmoid colon and rectum. Findings are concerning for diffuse colitis. Underlying lesion would be difficult to exclude There is multifocal stranding in the pelvic fat, greatest the perirectal region. This may be related to the patient's colitis, however prior radiation therapy or other intervention is possible as an etiology. Small low-density in the left hemipelvis, axial image 165. This is slightly larger and may represent low density associated with the left ovary. Question wall thickening in the distal small bowel. Small right lung base nodule, unchanged. D/ / Carlos Mcconnell / Carlos Mcconnell Interpreting Provider: Carlos Mcconnell - VTE Reasons for not Prescribing Prophylaxis: Treatment not Indicated - Low risk for VTE Consult Discharge Plan - Plan Referrals: Honorio Black MD [Primary Care Provider] - 04/10/18 2:45 pm
[2018-03-29 05:36] LABS: BUN/Creatinine Ratio 18 (6-26); Blood Urea Nitrogen 16 mg/dL (8-23); Calcium 9.4 mg/dL (8.6-10.3); Carbon Dioxide 24 mEq/L (23-29); Chloride 107 mEq/L (98-107); Glucose 140 mg/dL (70-105); Osmolality,Calculated 293 (280-300); Potassium 3.9 mEq/L (3.5-5.1); Sodium 140 mEq/L (136-145); eGFR For African Americans > 60 (> 60); eGFR For Non-African Americans > 60 (> 60)
[2018-03-29] MEDS: *HR* Heparin 5,000 UNIT/ML VIAL SQ SCH (06:17)
[2018-03-29] MEDS: Cholestyramine 4 GM POWD.PACK PO SCH (07:36)
[2018-03-29] MEDS: Aspirin Enteric Coated 81 MG Tablet PO SCH (07:41)
[2018-03-29] MEDS: Valsartan 80 MG TABLET PO SCH (07:41)
[2018-03-29] MEDS: Cholecalciferol (D-3) 1,000 UNIT TABLET PO SCH (07:42)
[2018-03-29] MEDS: Letrozole 2.5 MG TABLET PO SCH (07:42)
[2018-03-29] MEDS: amLODIPine 5 MG TABLET PO SCH (07:42)
[2018-03-29] MEDS: Metoprolol XL (24 HR) Succ 50 MG TAB.ER.24H PO SCH (07:42)
--- NOTE | 2018-03-29 10:30 | Discharge Summary ---
- NOTES TO OUTPATIENT PROVIDER Notes to Outpatient Provider: The patient has had progressing stool incontinence - a couple years. CT shows possible colitis. Needs referal for colonoscopy. Her meds for tx of HTN has been changed. Date of Encounter: 03/29/18 Time of Encounter: 10:00 - Discharge Diagnosis (1) Accelerated hypertension Status: Acute (2) Stool incontinence Status: Acute Qualifiers: Fecal incontinence type: unspecified Qualified Code(s): R15.9 - Full incontinence of feces (3) Endometrial sarcoma Status: Chronic (4) Acute hypokalemia Status: Resolved Hospital course: Ms. Tam is a 77 year old female Discharge discussed with: patient, nurse, case management - Time Spent with Patient Total time spent providing and/or coordinating discharge services: Greater than 30 minutes - Discharge Medications Prescriptions: amLODIPine [Norvasc] 5 mg PO DAILY #30 tablet Cholestyramine 4 gm PO QIDAC #120 powd.pack Valsartan [Diovan] 80 mg PO DAILY #30 tablet Home Medications: Alendronate Sodium [Fosamax] 70 mg PO QWEEK 02/13/17 [History] Ferrous Sulfate [Iron] 325 mg PO DAILY 02/13/17 [History] Magnesium Oxide [Magnesium] 250 mg PO DAILY 02/13/17 [History] Metoprolol XL (24 HR) Succ [Toprol Xl] 100 mg PO DAILY 02/13/17 [History] Calcium Carbonate/Vitamin D3 [Calcium 600 + Vit D Softgel] 1 each PO BID #60 capsule 03/27/17 [Rx] Letrozole [Femara] 2.5 mg PO DAILY #30 tablet 03/27/17 [Rx] Oxycodone HCl [Oxaydo] 5 mg PO HS PRN #30 tablet.orl 03/27/17 [Rx] Cyanocobalamin (B-12) [Vitamin B12] 1,000 mcg IM QMONTH #1 vial 09/25/17 [Rx] Aspirin [Lo-Dose Aspirin EC] 81 mg PO DAILY 03/26/18 [History] Cholestyramine 4 gm PO QIDAC #120 powd.pack 03/29/18 [Rx] Potassium Chloride [K-Tab ER] 20 meq PO BID #0 03/29/18 [Rx] Valsartan [Diovan] 80 mg PO DAILY #30 tablet 03/29/18 [Rx] amLODIPine [Norvasc] 5 mg PO DAILY #30 tablet 03/29/18 [Rx] cloNIDine HCl [CloNIDine HCl] 0.1 mg PO ONCE PRN #10 tablet 03/29/18 [Rx] Allergies/Adverse Reactions: 3 Allergy/AdvReac Type Severity Reaction Status Date / Time doxorubicin AdvReac Unknown unknown Verified 03/26/18 17:13 Date of admission: 03/26/18 19:35 Primary care physician: Honorio Black MD Discharging clinician: Reji Chan Anticipated date of discharge: 03/29/18 - Constitutional Vitals: Temp Pulse Resp BP Pulse Ox 98.1 F 71 16 188/85 95 03/29/18 07:45 03/29/18 07:45 03/29/18 07:45 03/29/18 07:45 03/29/18 07:45 General appearance: Present: A&O X 3, no acute distress - Respiratory Respiratory exam: Present: CTAB. Absent: accessory muscle use, rales, rhonchi, wheezes - Cardiovascular Cardiovascular exam: Present: RRR. Absent: diastolic murmur, gallop, systolic murmur - GI/Abdominal GI/Abdominal exam: Present: normal bowel sounds, soft, no peritoneal signs. Absent: distended, tenderness - Skin Skin exam: Present: dry, intact - Patient Status Condition: Fair - Discharge Instructions Follow Up With: Honorio Black MD [Primary Care Provider] - 04/10/18 2:45 pm - Diet and Activity Activity: increase activity as tolerated Diet: regular diet - VTE Reasons for not Prescribing Prophylaxis: Treatment not Indicated - Low risk for VTE
[2018-03-29 10:53] VITALS: BP 159/92
== END 2018-03-29 12:27 | disposition home or self-care (01) | DRG 305 ==
LOC: EMEROO 13:36 → SUATTDRO 19:35 → 2NNU 19:35
PROVIDERS: ADMIT Internal Medicine Nephrology; ATTEND Internal Medicine

== ENCOUNTER 2019-12-04 15:03 | Inpatient (IN) ==
[2019-12-04] MEDS ORDERED: Naloxone 0.4 MG/ML INJ IVP PRN (19:20)
[2019-12-04] MEDS ORDERED: Potassium Chloride 40 MEQ, Lidocaine 1% 2 ML in 0.9 % Sodium Chloride 500 ML IVPB ONE (19:25)
[2019-12-04] MEDS ORDERED: Ondansetron 4 MG/2 ML VIAL IVP PRN (19:29)
[2019-12-04] MEDS ORDERED: 0.9 % Sodium Chloride 1,000 ML IVC SCH (19:30)
[2019-12-04 20:03] LABS: Basophils % 0.5 %; Eosinophils # 0.1 K/mcL (0.0-0.6); Eosinophils % 1.8 %; Hematocrit 29.5 % (35.3-44.9); Hemoglobin 10.2 g/dL (11.5-15.4); Immature Granulocytes % 0.6 % (0-4); Lymphocytes # 1.1 K/mcL (0.6-4.6); Lymphocytes % 14.5 %; Mean Corpuscular HGB Conc 34.6 g/dL (31.6-35.5); Mean Corpuscular Hemoglobin 25.9 pg (28.0-33.3); Mean Corpuscular Volume 74.9 fL (83.0-100.0); Mean Platelet Volume 9.7 fL (9.4-12.4); Monocytes # 0.6 K/mcL (0.0-1.3); Monocytes % 7.5 %; Neutrophils # 5.8 K/mcL (1.6-8.9); Platelet Count 378 K/mcL (140-400); Red Blood Count 3.94 M/mcL (3.82-4.97); Red Cell Distribution Width 14.5 % (11.5-14.5); Segmented Neutrophils % 75.1 %; White Blood Count 7.7 K/mcL (4.3-11.1)
[2019-12-04 20:07] LABS: INR 1.1; Prothrombin Time 12.6 Seconds (9.4-12.1)
[2019-12-04 20:10] LABS: Activated Partial Thrombo Time 30.7 Seconds (26.0-36.0)
[2019-12-04 20:37] LABS: Albumin 3.3 g/dL (3.5-5.7); Albumin/Globulin Ratio 1.3 (1.1-2.2); Bilirubin,Total 0.3 mg/dL (0.3-1.0); Calcium 7.8 mg/dL (8.6-10.3); Globulin 2.6 g/dL (2.4-3.5); Magnesium 1.6 mg/dL (1.6-2.6); Phosphorous 2.2 mg/dL (2.7-4.5); Potassium 1.9 mEq/L (3.5-5.1); Total Protein 5.9 g/dL (6.4-8.9); Troponin I 0.09 ng/mL (< 0.04)
[2019-12-04] MEDS ORDERED: Potassium Chloride Elixir 20 MEQ/15 ML UDC PO ONE (20:53)
[2019-12-04] MEDS: amLODIPine 5 MG TABLET PO SCH (21:09)
[2019-12-04] MEDS: cloNIDine HCl 0.1 MG TABLET PO SCH (21:10)
[2019-12-04] MEDS: *HR* Heparin 5,000 UNIT/ML VIAL SQ SCH (21:10)
[2019-12-05 00:53] LABS: Bilirubin,Urine Negative (Negative); Blood,Urine Trace (Negative); Clarity,Urine Cloudy (Clear); Color,Urine Yellow (Yellow); Glucose,Urine (UA) Normal (Normal); Ketones,Urine Negative (Negative); Leukocyte Esterase,Urine Moderate (Negative); Nitrite,Urine Negative (Negative); Protein,Urine Trace mg/dL (Neg-Trace); Specific Gravity,Urine 1.019 (1.010-1.025); Urobilinogen,Urine Normal (Normal)
[2019-12-05 00:55] LABS: Bacteria,Urine Many per hpf (None-Few); Hyaline Casts,Urine None Seen per lpf (None-Few); Squamous Epithelial Cell,Urine Few per lpf (None-Few); WBC,Urine 50-100 per hpf (0-3)
[2019-12-05] MEDS ORDERED: Potassium Chloride Elixir 20 MEQ/15 ML UDC PO ONE (02:19)
[2019-12-05] MEDS: *HR* Heparin 5,000 UNIT/ML VIAL SQ SCH ×3 (05:43→20:50)
[2019-12-05 06:09] LABS: Hematocrit 30.3 % (35.3-44.9); Hemoglobin 10.1 g/dL (11.5-15.4); Mean Corpuscular HGB Conc 33.3 g/dL (31.6-35.5); Mean Corpuscular Volume 78.1 fL (83.0-100.0); Mean Platelet Volume 9.5 fL (9.4-12.4); Platelet Count 357 K/mcL (140-400); Red Blood Count 3.88 M/mcL (3.82-4.97); Red Cell Distribution Width 14.7 % (11.5-14.5); White Blood Count 6.5 K/mcL (4.3-11.1)
[2019-12-05 06:26] LABS: Potassium 2.7 mEq/L (3.5-5.1)
[2019-12-05] MEDS ORDERED: Potassium Chloride 40 MEQ, Lidocaine 1% 2 ML in 0.9 % Sodium Chloride 500 ML IVPB ONE (07:25)
[2019-12-05] MEDS ORDERED: Calcium Gluconate 1gm/50mL 1 GM/50 ML BAG IVPB ONE (07:27)
[2019-12-05] MEDS: amLODIPine 5 MG TABLET PO SCH (07:53)
[2019-12-05] MEDS: Magnesium Oxide 400 MG TABLET PO SCH (07:54)
[2019-12-05] MEDS: Ringers Solution, Lactated 1,000 ML IVC SCH (07:54)
[2019-12-05] MEDS: cloNIDine HCl 0.1 MG TABLET PO SCH (07:54)
[2019-12-05 08:20] LABS: Magnesium 1.9 mg/dL (1.6-2.6)
[2019-12-05 08:34] LABS: Troponin I 0.08 ng/mL (< 0.04)
[2019-12-05] MEDS ORDERED: Letrozole 2.5 MG TABLET PO SCH (09:00)
[2019-12-05] MEDS: cefTRIAXone 1,000 MG in Water for inj. (sterile) 10 ML IVP SCH (11:36)
[2019-12-05 12:22] LABS: Potassium,Urine 18.8 mEq/L; Protein/Creatinine Ratio,Urine 1.1 mg/mg (0.00-0.20); Sodium, Urine 59.6 mEq/L
[2019-12-05] MEDS ORDERED: *HR* OxyCODONE/APAP 5/325 TABLET PO PRN (17:47)
[2019-12-05] MEDS: MetroNIDAZOLE 500 MG/100 ML 500 MG/100 ML BAG IVPB SCH ×2 (17:51→23:14)
[2019-12-05 19:20] LABS: Calcium 8.8 mg/dL (8.6-10.3); Potassium 2.8 mEq/L (3.5-5.1)
[2019-12-05] MEDS: Potassium Chloride Elixir 20 MEQ/15 ML UDC PO SCH (20:51)
[2019-12-06] MEDS: *HR* Heparin 5,000 UNIT/ML VIAL SQ SCH ×3 (03:54→22:46)
[2019-12-06] MEDS: Ringers Solution, Lactated 1,000 ML IVC SCH ×2 (03:54→22:47)
[2019-12-06 04:23] LABS: Calcium 8.2 mg/dL (8.6-10.3); Potassium 2.7 mEq/L (3.5-5.1)
[2019-12-06 04:36] LABS: Thyroid Stimulating Hormone 0.584 mcIU/mL (0.340-5.600)
[2019-12-06] MEDS ORDERED: Potassium Chloride 40 MEQ, Lidocaine 1% 2 ML in 0.9 % Sodium Chloride 500 ML IVPB ONE (08:17)
[2019-12-06] MEDS: cefTRIAXone 1,000 MG in Water for inj. (sterile) 10 ML IVP SCH (09:30)
[2019-12-06] MEDS: cloNIDine HCl 0.1 MG TABLET PO SCH (09:32)
[2019-12-06] MEDS: Magnesium Oxide 400 MG TABLET PO SCH (09:32)
[2019-12-06] MEDS: Potassium Chloride Elixir 20 MEQ/15 ML UDC PO SCH (09:32)
[2019-12-06] MEDS: amLODIPine 5 MG TABLET PO SCH (09:32)
[2019-12-06] MEDS: MetroNIDAZOLE 500 MG/100 ML 500 MG/100 ML BAG IVPB SCH (09:33)
[2019-12-06] MEDS ORDERED: MetroNIDAZOLE 500 MG/100 ML 500 MG/100 ML BAG IVPB SCH (18:00)
[2019-12-06 18:50] LABS: Calcium 8.7 mg/dL (8.6-10.3); Potassium 3.1 mEq/L (3.5-5.1)
[2019-12-06] MEDS ORDERED: *HR* Propofol 200 MG/20 ML VIAL IVP ONE (19:46)
[2019-12-06] MEDS ORDERED: *HR* FentaNYL (PF) 100 MCG/2 ML VIAL ONE (19:48)
[2019-12-06] MEDS ORDERED: Isovue-300 50ML VIAL ONE (19:52)
[2019-12-06] MEDS ORDERED: Ondansetron 4 MG/2 ML VIAL ONE (20:28)
[2019-12-06] MEDS ORDERED: Dexamethasone 4 MG/ML VIAL ONE (20:28)
[2019-12-06] MEDS ORDERED: Ondansetron 4 MG/2 ML VIAL IVP ONE (20:37)
[2019-12-06] MEDS ORDERED: *HR* OxyCODONE Immed Rel 5 MG TABLET PO PRN (20:37)
[2019-12-06] MEDS ORDERED: *HR* Promethazine 25 MG/ML VIAL IVP PRN (20:37)
[2019-12-06] MEDS ORDERED: *HR* HYDROmorphone (PF) 1 MG/ML SYRINGE IVP PRN (20:37)
[2019-12-06] MEDS ORDERED: Ondansetron 4 MG/2 ML VIAL IVP PRN (21:56)
[2019-12-06] MEDS ORDERED: *HR* OxyCODONE/APAP 5/325 TABLET PO PRN (21:56)
[2019-12-06] MEDS ORDERED: Naloxone 0.4 MG/ML INJ IVP PRN (21:56)
[2019-12-07] MEDS ORDERED: MetroNIDAZOLE 500 MG/100 ML 500 MG/100 ML BAG IVPB SCH (02:00)
[2019-12-07] MEDS: Potassium Chloride Elixir 20 MEQ/15 ML UDC PO SCH (03:22)
[2019-12-07 03:47] LABS: Basophils % 0.4 %; Eosinophils % 0.2 %; Hematocrit 29.1 % (35.3-44.9); Immature Granulocytes % 0.6 % (0-4); Lymphocytes # 0.5 K/mcL (0.6-4.6); Mean Corpuscular HGB Conc 34.4 g/dL (31.6-35.5); Mean Corpuscular Hemoglobin 26.5 pg (28.0-33.3); Mean Platelet Volume 9.4 fL (9.4-12.4); Monocytes % 0.8 %; Neutrophils # 4.2 K/mcL (1.6-8.9); Platelet Count 372 K/mcL (140-400); Red Blood Count 3.78 M/mcL (3.82-4.97); Red Cell Distribution Width 15.3 % (11.5-14.5); White Blood Count 4.8 K/mcL (4.3-11.1)
[2019-12-07 04:35] LABS: Calcium 8.1 mg/dL (8.6-10.3); Magnesium 1.2 mg/dL (1.6-2.6); Potassium 2.8 mEq/L (3.5-5.1)
[2019-12-07] MEDS: *HR* Heparin 5,000 UNIT/ML VIAL SQ SCH ×3 (06:04→22:27)
[2019-12-07] MEDS: Ringers Solution, Lactated 1,000 ML IVC SCH ×2 (07:06→10:23)
[2019-12-07] MEDS ORDERED: POTASSIUM CHLORIDE IVC SCH (07:30)
[2019-12-07] MEDS ORDERED: WATER IVC SCH (07:30)
[2019-12-07] MEDS ORDERED: SODIUM BICARBONATE IVC SCH (07:30)
[2019-12-07] MEDS ORDERED: D5 IVC SCH (07:30)
[2019-12-07] MEDS ORDERED: Potassium Chloride Elixir 20 MEQ/15 ML UDC PO SCH (09:00)
[2019-12-07] MEDS: Magnesium Oxide 400 MG TABLET PO SCH (10:19)
[2019-12-07] MEDS: amLODIPine 5 MG TABLET PO SCH (10:19)
[2019-12-07] MEDS: cloNIDine HCl 0.1 MG TABLET PO SCH (10:20)
[2019-12-07] MEDS: cefTRIAXone 1,000 MG in Water for inj. (sterile) 10 ML IVP SCH (10:20)
[2019-12-07] MEDS ORDERED: Diphenoxylate/Atropine 1 TAB TABLET PO PRN (10:21)
[2019-12-07] MEDS: Potassium Chloride 40 MEQ, Sodium Bicarbonate 150 MEQ in D5% in Water 1,000 ML IVC SCH (13:28)
[2019-12-07 16:31] LABS: Calcium 7.9 mg/dL (8.6-10.3); Magnesium 1.7 mg/dL (1.6-2.6); Potassium 2.7 mEq/L (3.5-5.1)
[2019-12-08] MEDS: Potassium Chloride 40 MEQ, Sodium Bicarbonate 150 MEQ in D5% in Water 1,000 ML IVC SCH (02:56)
[2019-12-08 05:46] LABS: Calcium 7.9 mg/dL (8.6-10.3); Magnesium 1.8 mg/dL (1.6-2.6); Potassium 2.7 mEq/L (3.5-5.1)
[2019-12-08] MEDS: *HR* Heparin 5,000 UNIT/ML VIAL SQ SCH ×3 (06:21→21:12)
[2019-12-08] MEDS: amLODIPine 5 MG TABLET PO SCH (08:17)
[2019-12-08] MEDS: cefTRIAXone 1,000 MG in Water for inj. (sterile) 10 ML IVP SCH (08:17)
[2019-12-08] MEDS: cloNIDine HCl 0.1 MG TABLET PO SCH (08:18)
[2019-12-08] MEDS: Magnesium Oxide 400 MG TABLET PO SCH (08:18)
[2019-12-08] MEDS ORDERED: Potassium Chloride 40 MEQ, Lidocaine 1% 2 ML in 0.9 % Sodium Chloride 500 ML IVPB ONE (08:28)
[2019-12-08] MEDS: Cholestyramine 4 GM POWD.PACK PO SCH ×2 (13:27→17:05)
[2019-12-09 06:39] LABS: Calcium 8.4 mg/dL (8.6-10.3); Magnesium 1.8 mg/dL (1.6-2.6); Potassium 3.3 mEq/L (3.5-5.1)
[2019-12-09] MEDS: Cholestyramine 4 GM POWD.PACK PO SCH ×3 (08:21→16:44)
[2019-12-09] MEDS ORDERED: Potassium Chloride Elixir 20 MEQ/15 ML UDC PO ONE (10:22)
[2019-12-09] MEDS: Metoprolol XL (24 HR) Succ 50 MG TAB.ER.24H PO SCH (11:10)
[2019-12-09] MEDS: cefTRIAXone 1,000 MG in Water for inj. (sterile) 10 ML IVP SCH (11:10)
[2019-12-09] MEDS: amLODIPine 5 MG TABLET PO SCH (11:10)
[2019-12-09] MEDS: Aspirin Enteric Coated 81 MG Tablet PO SCH (11:10)
[2019-12-09] MEDS: cloNIDine HCl 0.1 MG TABLET PO SCH (12:15)
[2019-12-09] MEDS ORDERED: cloNIDine HCl 0.1 MG TABLET PO PRN (13:35)
[2019-12-10] MEDS: Cholestyramine 4 GM POWD.PACK PO SCH ×3 (06:10→16:31)
[2019-12-10 06:33] LABS: Calcium 8.5 mg/dL (8.6-10.3); Potassium 3.3 mEq/L (3.5-5.1)
[2019-12-10] MEDS: amLODIPine 5 MG TABLET PO SCH (08:44)
[2019-12-10] MEDS: Metoprolol XL (24 HR) Succ 50 MG TAB.ER.24H PO SCH (08:44)
[2019-12-10] MEDS: Aspirin Enteric Coated 81 MG Tablet PO SCH (08:44)
[2019-12-10] MEDS ORDERED: Potassium Chloride Elixir 20 MEQ/15 ML UDC PO ONE (08:56)
[2019-12-10 17:26] LABS: Calcium 8.8 mg/dL (8.6-10.3); Potassium 4.3 mEq/L (3.5-5.1)
[2019-12-11] MEDS: Cholestyramine 4 GM POWD.PACK PO SCH ×3 (08:07→17:48)
[2019-12-11 08:29] LABS: BUN/Creatinine Ratio 10 (6-26); Blood Urea Nitrogen 11 mg/dL (8-23); Calcium 9.2 mg/dL (8.6-10.3); Carbon Dioxide 25 mEq/L (23-29); Chloride 107 mEq/L (98-107); Glucose 114 mg/dL (70-105); Magnesium 1.6 mg/dL (1.6-2.6); Osmolality,Calculated 290 (280-300); Potassium 4.2 mEq/L (3.5-5.1); Sodium 140 mEq/L (136-145); eGFR For African Americans > 60 (> 60); eGFR For Non-African Americans 50 (> 60)
[2019-12-11] MEDS: Aspirin Enteric Coated 81 MG Tablet PO SCH (11:56)
[2019-12-11] MEDS: amLODIPine 5 MG TABLET PO SCH (11:56)
[2019-12-11] MEDS: Metoprolol XL (24 HR) Succ 50 MG TAB.ER.24H PO SCH (11:56)
[2019-12-11] MEDS ORDERED: Metoprolol XL (24 HR) Succ 50 MG TAB.ER.24H PO SCH (21:00)
[2019-12-11] MEDS: cloNIDine HCl 0.1 MG TABLET PO SCH (21:31)
[2019-12-12 04:39] LABS: Calcium 8.6 mg/dL (8.6-10.3); Magnesium 1.3 mg/dL (1.6-2.6); Phosphorous 3.6 mg/dL (2.7-4.5); Potassium 4.8 mEq/L (3.5-5.1)
[2019-12-12 05:55] LABS: Basophils % 0.4 %; Eosinophils # 0.5 K/mcL (0.0-0.6); Eosinophils % 4.2 %; Hematocrit 29.5 % (35.3-44.9); Hemoglobin 9.2 g/dL (11.5-15.4); Immature Granulocytes % 0.9 % (0-4); Lymphocytes # 1.2 K/mcL (0.6-4.6); Lymphocytes % 10.4 %; Mean Corpuscular HGB Conc 31.2 g/dL (31.6-35.5); Mean Corpuscular Hemoglobin 26.1 pg (28.0-33.3); Mean Corpuscular Volume 83.8 fL (83.0-100.0); Mean Platelet Volume 9.9 fL (9.4-12.4); Monocytes # 0.8 K/mcL (0.0-1.3); Monocytes % 6.9 %; Neutrophils # 8.7 K/mcL (1.6-8.9); Platelet Count 286 K/mcL (140-400); Red Blood Count 3.52 M/mcL (3.82-4.97); Red Cell Distribution Width 14.5 % (11.5-14.5); Segmented Neutrophils % 77.2 %; White Blood Count 11.3 K/mcL (4.3-11.1)
[2019-12-12 05:56] LABS: Basophils # 0.1 K/mcL (0.0-0.2)
[2019-12-12 06:56] VITALS: BP 113/65
[2019-12-12] MEDS: Aspirin Enteric Coated 81 MG Tablet PO SCH (09:49)
[2019-12-12] MEDS: cloNIDine HCl 0.1 MG TABLET PO SCH (09:49)
[2019-12-12] MEDS: Cholestyramine 4 GM POWD.PACK PO SCH (09:49)
[2019-12-12] MEDS: amLODIPine 5 MG TABLET PO SCH (09:49)
[2019-12-12] MEDS: Metoprolol XL (24 HR) Succ 50 MG TAB.ER.24H PO SCH (09:49)
[2019-12-12] MEDS ORDERED: Magnesium Oxide 400 MG TABLET PO ONE (11:27)
== END 2019-12-12 14:35 | disposition home or self-care (01) | DRG 660 ==
LOC: 2NENU → SUATTDRO 17:56
PROVIDERS: ADMIT Internal Medicine; ATTEND Internal Medicine

== ENCOUNTER 2020-03-17 12:34 | Inpatient (IN) ==
[2020-03-17 13:17] LABS: Basophils # 0.1 K/mcL (0.0-0.2); Basophils % 0.5 %; Eosinophils # 0.1 K/mcL (0.0-0.6); Eosinophils % 0.7 %; Hematocrit 32.8 % (35.3-44.9); Hemoglobin 10.5 g/dL (11.5-15.4); Immature Granulocytes % 0.5 % (0-4); Lymphocytes # 1.1 K/mcL (0.6-4.6); Lymphocytes % 10.2 %; Mean Corpuscular Hemoglobin 23.3 pg (28.0-33.3); Mean Corpuscular Volume 72.7 fL (83.0-100.0); Mean Platelet Volume 9.4 fL (9.4-12.4); Monocytes # 0.7 K/mcL (0.0-1.3); Monocytes % 6.5 %; Neutrophils # 8.4 K/mcL (1.6-8.9); Platelet Count 502 K/mcL (140-400); Red Blood Count 4.51 M/mcL (3.82-4.97); Red Cell Distribution Width 15.9 % (11.5-14.5); Segmented Neutrophils % 81.6 %; White Blood Count 10.3 K/mcL (4.3-11.1)
[2020-03-17] MEDS ORDERED: Aspirin 325 MG TABLET PO ONE (13:48)
[2020-03-17] MEDS ORDERED: Potassium Chloride Elixir 20 MEQ/15 ML UDC PO ONE (13:49)
[2020-03-17 13:50] LABS: Albumin 4.2 g/dL (3.5-5.7); Albumin/Globulin Ratio 1.4 (1.1-2.2); Bilirubin,Total 0.3 mg/dL (0.3-1.0); Calcium 8.6 mg/dL (8.6-10.3); Magnesium 1.2 mg/dL (1.6-2.6); Total Protein 7.2 g/dL (6.4-8.9)
[2020-03-17] MEDS ORDERED: Potassium Chloride 20 MEQ, Lidocaine 1% 2 ML in 0.9 % Sodium Chloride 250 ML IVPB ONE (13:51)
[2020-03-17] MEDS ORDERED: 0.9 % Sodium Chloride 1,000 ML ONE (13:55)
[2020-03-17] MEDS ORDERED: 0.9 % Sodium Chloride 1,000 ML IV ONE (14:03)
[2020-03-17] MEDS ORDERED: Naloxone 0.4 MG/ML INJ IVP PRN (15:41)
[2020-03-17] MEDS ORDERED: Ondansetron ODT 4 MG TAB.RAPDIS SL PRN (15:41)
[2020-03-17] MEDS: *HR* Heparin 5,000 UNIT/ML VIAL SQ SCH (17:00)
[2020-03-17] MEDS: 0.9 % Sodium Chloride 1,000 ML IVC SCH (17:00)
[2020-03-17 17:17] LABS: Calcium 7.2 mg/dL (8.6-10.3); Potassium 2.5 mEq/L (3.5-5.1)
[2020-03-17] MEDS ORDERED: Potassium Chloride 40 MEQ, Lidocaine 1% 2 ML in 0.9 % Sodium Chloride 500 ML IVPB ONE (17:19)
[2020-03-17 21:49] LABS: Potassium 2.5 mEq/L (3.5-5.1)
[2020-03-18 02:36] LABS: Hematocrit 28.8 % (35.3-44.9); Hemoglobin 9.1 g/dL (11.5-15.4); Mean Corpuscular HGB Conc 31.6 g/dL (31.6-35.5); Mean Corpuscular Hemoglobin 23.4 pg (28.0-33.3); Mean Platelet Volume 10.1 fL (9.4-12.4); Platelet Count 243 K/mcL (140-400); Red Blood Count 3.89 M/mcL (3.82-4.97); Red Cell Distribution Width 16.3 % (11.5-14.5)
[2020-03-18 04:50] LABS: Calcium 7.1 mg/dL (8.6-10.3); Magnesium 1.3 mg/dL (1.6-2.6); Potassium 2.4 mEq/L (3.5-5.1)
[2020-03-18] MEDS: *HR* Heparin 5,000 UNIT/ML VIAL SQ SCH ×2 (05:47→17:07)
[2020-03-18] MEDS ORDERED: Calcium Chloride 1,000 MG in 0.9 % Sodium Chloride 100 ML IVPB ONE (08:01)
[2020-03-18] MEDS ORDERED: Calcium Gluconate 1gm/50mL 1 GM/50 ML BAG IVPB ONE (08:13)
[2020-03-18] MEDS ORDERED: Potassium Chloride 40 MEQ, Lidocaine 1% 2 ML in 0.9 % Sodium Chloride 500 ML IVPB ONE (08:24)
[2020-03-18] MEDS: 0.9 % Sodium Chloride 1,000 ML IVC SCH (08:25)
[2020-03-18] MEDS: Magnesium Oxide 400 MG TABLET PO SCH (08:35)
[2020-03-18] MEDS: Cholecalciferol (D-3) 1,000 UNIT (25MCG) TABLET PO SCH (08:35)
[2020-03-18] MEDS: Cyanocobalamin (B-12) 1,000 MCG TABLET PO SCH (08:35)
[2020-03-18 13:18] LABS: Uric Acid 7.4 mg/dL (2.3-7.6)
[2020-03-18] MEDS: Metoprolol XL (24 HR) Succ 25 MG TAB.ER.24H PO SCH (14:00)
[2020-03-18] MEDS: Aspirin Enteric Coated 81 MG Tablet PO SCH (15:36)
[2020-03-18] MEDS: 0.45 % Sodium Chloride w/KCl 20 MEQ/1,000 ML MLS IVC SCH (15:36)
[2020-03-19] MEDS: 0.45 % Sodium Chloride w/KCl 20 MEQ/1,000 ML MLS IVC SCH ×4 (00:50→23:04)
[2020-03-19 02:14] LABS: Hematocrit 27.2 % (35.3-44.9); Hemoglobin 8.5 g/dL (11.5-15.4); Mean Corpuscular HGB Conc 31.3 g/dL (31.6-35.5); Mean Corpuscular Hemoglobin 23.4 pg (28.0-33.3); Mean Corpuscular Volume 74.9 fL (83.0-100.0); Mean Platelet Volume 9.3 fL (9.4-12.4); Platelet Count 435 K/mcL (140-400); Red Blood Count 3.63 M/mcL (3.82-4.97); Red Cell Distribution Width 16.4 % (11.5-14.5); White Blood Count 8.6 K/mcL (4.3-11.1)
[2020-03-19 02:26] LABS: Calcium 7.5 mg/dL (8.6-10.3); Magnesium 2.1 mg/dL (1.6-2.6)
[2020-03-19 04:37] LABS: Bilirubin,Urine Negative (Negative); Blood,Urine Small (Negative); Clarity,Urine Cloudy (Clear); Color,Urine Yellow (Yellow); Glucose,Urine (UA) Normal (Normal); Ketones,Urine Negative (Negative); Leukocyte Esterase,Urine Large (Negative); Nitrite,Urine Negative (Negative); Protein,Urine 30 mg/dL (Neg-Trace); Specific Gravity,Urine 1.014 (1.010-1.025); Urobilinogen,Urine Normal (Normal)
[2020-03-19 04:39] LABS: Bacteria,Urine None Seen per hpf (None-Few); Hyaline Casts,Urine None Seen per lpf (None-Few); Squamous Epithelial Cell,Urine Many per lpf (None-Few); WBC,Urine 50-100 per hpf (0-3)
[2020-03-19 04:41] LABS: Sodium, Urine 64.2 mEq/L
[2020-03-19] MEDS: *HR* Heparin 5,000 UNIT/ML VIAL SQ SCH ×2 (05:28→17:18)
[2020-03-19] MEDS ORDERED: Diphenoxylate/Atropine 1 TAB TABLET PO PRN (07:36)
[2020-03-19] MEDS: Magnesium Oxide 400 MG TABLET PO SCH (09:00)
[2020-03-19] MEDS: Metoprolol XL (24 HR) Succ 25 MG TAB.ER.24H PO SCH (09:00)
[2020-03-19] MEDS: Aspirin Enteric Coated 81 MG Tablet PO SCH (09:00)
[2020-03-19] MEDS: Cholecalciferol (D-3) 1,000 UNIT (25MCG) TABLET PO SCH (09:00)
[2020-03-19] MEDS: Cyanocobalamin (B-12) 1,000 MCG TABLET PO SCH (09:01)
[2020-03-19] MEDS ORDERED: Isovue-370 500 ML BOTTLE PO ONE (22:27)
[2020-03-20 02:18] LABS: Hemoglobin 8.8 g/dL (11.5-15.4)
[2020-03-20 02:19] LABS: Hematocrit 28.9 % (35.3-44.9); Mean Corpuscular HGB Conc 30.4 g/dL (31.6-35.5); Mean Corpuscular Hemoglobin 23.8 pg (28.0-33.3); Mean Corpuscular Volume 78.1 fL (83.0-100.0); Mean Platelet Volume 9.4 fL (9.4-12.4); Platelet Count 415 K/mcL (140-400); Red Cell Distribution Width 16.6 % (11.5-14.5)
[2020-03-20] MEDS: 0.45 % Sodium Chloride w/KCl 20 MEQ/1,000 ML MLS IVC SCH ×3 (02:39→19:45)
[2020-03-20 02:41] LABS: Calcium 7.9 mg/dL (8.6-10.3); Potassium 3.5 mEq/L (3.5-5.1)
[2020-03-20] MEDS: *HR* Heparin 5,000 UNIT/ML VIAL SQ SCH ×2 (05:06→16:13)
[2020-03-20] MEDS: Aspirin Enteric Coated 81 MG Tablet PO SCH (10:08)
[2020-03-20] MEDS: Cyanocobalamin (B-12) 1,000 MCG TABLET PO SCH (10:08)
[2020-03-20] MEDS: Magnesium Oxide 400 MG TABLET PO SCH (10:08)
[2020-03-20] MEDS: Metoprolol XL (24 HR) Succ 25 MG TAB.ER.24H PO SCH (10:08)
[2020-03-20] MEDS: Cholecalciferol (D-3) 1,000 UNIT (25MCG) TABLET PO SCH (10:08)
[2020-03-20] MEDS: cefTRIAXone 1,000 MG in 0.9 % Sodium Chloride Mini Bag 100 ML IVPB SCH (16:14)
[2020-03-20] MEDS ORDERED: Acetaminophen 325 MG TABLET PO PRN (19:31)
[2020-03-21] MEDS: 0.45 % Sodium Chloride w/KCl 20 MEQ/1,000 ML MLS IVC SCH (04:21)
[2020-03-21 05:19] LABS: Hematocrit 27.6 % (35.3-44.9); Hemoglobin 8.1 g/dL (11.5-15.4); Mean Corpuscular HGB Conc 29.3 g/dL (31.6-35.5); Mean Corpuscular Hemoglobin 23.5 pg (28.0-33.3); Mean Corpuscular Volume 80.2 fL (83.0-100.0); Mean Platelet Volume 9.7 fL (9.4-12.4); Platelet Count 301 K/mcL (140-400); Red Blood Count 3.44 M/mcL (3.82-4.97); Red Cell Distribution Width 16.7 % (11.5-14.5)
[2020-03-21 05:21] LABS: White Blood Count 18.4 K/mcL (4.3-11.1)
[2020-03-21] MEDS: *HR* Heparin 5,000 UNIT/ML VIAL SQ SCH ×2 (05:26→17:00)
[2020-03-21 05:38] LABS: Calcium 7.5 mg/dL (8.6-10.3); Magnesium 1.2 mg/dL (1.6-2.6); Potassium 5.5 mEq/L (3.5-5.1)
[2020-03-21] MEDS ORDERED: 0.9 % Sodium Chloride 1,000 ML IVC SCH (06:00)
[2020-03-21] MEDS: Cyanocobalamin (B-12) 1,000 MCG TABLET PO SCH (08:16)
[2020-03-21] MEDS: Letrozole 2.5 MG TABLET PO SCH (08:16)
[2020-03-21] MEDS: Magnesium Oxide 400 MG TABLET PO SCH (08:16)
[2020-03-21] MEDS: Aspirin Enteric Coated 81 MG Tablet PO SCH (08:16)
[2020-03-21] MEDS: Metoprolol XL (24 HR) Succ 25 MG TAB.ER.24H PO SCH (08:16)
[2020-03-21] MEDS: Cholecalciferol (D-3) 1,000 UNIT (25MCG) TABLET PO SCH (08:17)
[2020-03-21 10:35] LABS: Potassium 4.6 mEq/L (3.5-5.1)
[2020-03-21] MEDS: cefTRIAXone 1,000 MG in 0.9 % Sodium Chloride Mini Bag 100 ML IVPB SCH (17:00)
[2020-03-21] MEDS: Sodium Bicarbonate 75 MEQ in 0.45 % Sodium Chloride 1,000 ML IVC SCH (23:01)
[2020-03-22 03:14] LABS: Hemoglobin 7.1 g/dL (11.5-15.4); Mean Corpuscular HGB Conc 29.6 g/dL (31.6-35.5); Mean Corpuscular Hemoglobin 23.1 pg (28.0-33.3); Mean Corpuscular Volume 78.2 fL (83.0-100.0); Platelet Count 287 K/mcL (140-400); Red Blood Count 3.07 M/mcL (3.82-4.97); Red Cell Distribution Width 16.8 % (11.5-14.5); White Blood Count 11.2 K/mcL (4.3-11.1)
[2020-03-22 03:30] LABS: Calcium 7.3 mg/dL (8.6-10.3); Magnesium 1.5 mg/dL (1.6-2.6); Potassium 4.4 mEq/L (3.5-5.1)
[2020-03-22] MEDS: *HR* Heparin 5,000 UNIT/ML VIAL SQ SCH ×2 (05:06→17:24)
[2020-03-22] MEDS: Metoprolol XL (24 HR) Succ 25 MG TAB.ER.24H PO SCH (08:12)
[2020-03-22] MEDS: Magnesium Oxide 400 MG TABLET PO SCH (08:12)
[2020-03-22] MEDS: Aspirin Enteric Coated 81 MG Tablet PO SCH (08:12)
[2020-03-22] MEDS: Cholecalciferol (D-3) 1,000 UNIT (25MCG) TABLET PO SCH (08:12)
[2020-03-22] MEDS: Letrozole 2.5 MG TABLET PO SCH (08:12)
[2020-03-22] MEDS: Cyanocobalamin (B-12) 1,000 MCG TABLET PO SCH (08:12)
[2020-03-22] MEDS ORDERED: Sodium Bicarbonate 75 MEQ in 0.45 % Sodium Chloride 1,000 ML IVC SCH (08:15)
[2020-03-22] MEDS: cefTRIAXone 1,000 MG in 0.9 % Sodium Chloride Mini Bag 100 ML IVPB SCH (17:25)
[2020-03-23] MEDS: *HR* Heparin 5,000 UNIT/ML VIAL SQ SCH ×2 (05:55→17:22)
[2020-03-23 06:23] LABS: Hematocrit 23.7 % (35.3-44.9); Hemoglobin 7.2 g/dL (11.5-15.4); Mean Corpuscular HGB Conc 30.4 g/dL (31.6-35.5); Mean Corpuscular Hemoglobin 23.1 pg (28.0-33.3); Mean Platelet Volume 10.1 fL (9.4-12.4); Platelet Count 280 K/mcL (140-400); Red Blood Count 3.12 M/mcL (3.82-4.97); Red Cell Distribution Width 16.7 % (11.5-14.5)
[2020-03-23 06:43] LABS: Calcium 7.3 mg/dL (8.6-10.3); Magnesium 1.6 mg/dL (1.6-2.6); Potassium 3.4 mEq/L (3.5-5.1)
[2020-03-23] MEDS ORDERED: Ondansetron 4 MG/2 ML VIAL IVP PRN (08:35)
[2020-03-23] MEDS ORDERED: Magnesium Oxide 400 MG TABLET PO SCH (09:00)
[2020-03-23] MEDS ORDERED: Potassium Chloride Elixir 20 MEQ/15 ML UDC PO SCH (09:00)
[2020-03-23] MEDS ORDERED: Naloxone 0.4 MG/ML INJ IVP PRN (10:25)
[2020-03-23] MEDS ORDERED: Diphenoxylate/Atropine 1 TAB TABLET PO PRN (10:25)
[2020-03-23] MEDS ORDERED: Ondansetron ODT 4 MG TAB.RAPDIS SL PRN (10:25)
[2020-03-23] MEDS ORDERED: Acetaminophen 325 MG TABLET PO PRN (10:25)
[2020-03-23] MEDS ORDERED: Sodium Bicarbonate 150 MEQ in D5% in Water 1,000 ML IVC SCH ×2 (11:43)
[2020-03-23] MEDS ORDERED: cefTRIAXone 1,000 MG in 0.9 % Sodium Chloride Mini Bag 100 ML IVPB SCH (17:00)
[2020-03-23] MEDS: Magnesium Oxide 400 MG TABLET PO SCH (20:21)
[2020-03-23] MEDS: Potassium Chloride Elixir 20 MEQ/15 ML UDC PO SCH (20:22)
[2020-03-24] MEDS: *HR* Heparin 5,000 UNIT/ML VIAL SQ SCH (05:52)
[2020-03-24 07:16] LABS: Hematocrit 24.6 % (35.3-44.9); Hemoglobin 7.6 g/dL (11.5-15.4); Mean Corpuscular HGB Conc 30.9 g/dL (31.6-35.5); Mean Corpuscular Hemoglobin 23.8 pg (28.0-33.3); Mean Corpuscular Volume 76.9 fL (83.0-100.0); Mean Platelet Volume 10.5 fL (9.4-12.4); Platelet Count 307 K/mcL (140-400); Red Cell Distribution Width 16.5 % (11.5-14.5); White Blood Count 7.2 K/mcL (4.3-11.1)
[2020-03-24] MEDS: Aspirin Enteric Coated 81 MG Tablet PO SCH (07:28)
[2020-03-24] MEDS: Sodium Bicarbonate 75 MEQ in 0.45 % Sodium Chloride 1,000 ML IVC SCH (07:28)
[2020-03-24] MEDS: Letrozole 2.5 MG TABLET PO SCH (07:29)
[2020-03-24] MEDS: Cyanocobalamin (B-12) 1,000 MCG TABLET PO SCH (07:30)
[2020-03-24] MEDS: Metoprolol XL (24 HR) Succ 25 MG TAB.ER.24H PO SCH (07:30)
[2020-03-24] MEDS: Cholecalciferol (D-3) 1,000 UNIT (25MCG) TABLET PO SCH (07:30)
[2020-03-24 07:45] LABS: Calcium 7.3 mg/dL (8.6-10.3); Magnesium 1.2 mg/dL (1.6-2.6); Potassium 3.8 mEq/L (3.5-5.1)
[2020-03-24] MEDS: Magnesium Oxide 400 MG TABLET PO SCH (08:53)
[2020-03-24] MEDS: Potassium Chloride Elixir 20 MEQ/15 ML UDC PO SCH (08:53)
[2020-03-24] MEDS ORDERED: Cholecalciferol (D-3) 1,000 UNIT (25MCG) TABLET PO SCH (09:00)
[2020-03-24] MEDS ORDERED: Letrozole 2.5 MG TABLET PO SCH (09:00)
[2020-03-24] MEDS ORDERED: Cyanocobalamin (B-12) 1,000 MCG TABLET PO SCH (09:00)
[2020-03-24] MEDS ORDERED: Metoprolol XL (24 HR) Succ 25 MG TAB.ER.24H PO SCH (09:00)
[2020-03-24] MEDS ORDERED: Aspirin Enteric Coated 81 MG Tablet PO SCH (09:00)
[2020-03-24 11:29] VITALS: BP 123/75
== END 2020-03-24 16:20 | disposition home health service (06) | DRG 987 ==
LOC: SUATTDRO → 3BNU 12:34 → EMEROOARM 12:34 → SUATTDRO 15:08 → 3BNU 16:03
PROVIDERS: ADMIT Family Medicine; ATTEND Family Medicine

== ENCOUNTER 2020-08-18 18:28 | Inpatient (IN) ==
[2020-08-18] MEDS ORDERED: Ondansetron 4 MG/2 ML VIAL IVP PRN (21:53)
[2020-08-18] MEDS ORDERED: Naloxone 0.4 MG/ML INJ IVP PRN (21:53)
[2020-08-18 22:33] LABS: Basophils % 0.5 %; Eosinophils # 0.2 K/mcL (0.0-0.6); Eosinophils % 2.1 %; Hematocrit 22.9 % (35.3-44.9); Hemoglobin 7.2 g/dL (11.5-15.4); Immature Granulocytes % 0.6 % (0-4); Lymphocytes # 0.7 K/mcL (0.6-4.6); Lymphocytes % 8.5 %; Mean Corpuscular HGB Conc 31.4 g/dL (31.6-35.5); Mean Corpuscular Hemoglobin 22.9 pg (28.0-33.3); Mean Corpuscular Volume 72.7 fL (83.0-100.0); Monocytes # 0.6 K/mcL (0.0-1.3); Neutrophils # 6.6 K/mcL (1.6-8.9); Platelet Count 477 K/mcL (140-400); Red Blood Count 3.15 M/mcL (3.82-4.97); Red Cell Distribution Width 15.8 % (11.5-14.5); Segmented Neutrophils % 81.3 %; White Blood Count 8.1 K/mcL (4.3-11.1)
[2020-08-18 23:04] LABS: Albumin 3.1 g/dL (3.5-5.7); Albumin/Globulin Ratio 1.2 (1.1-2.2); Bilirubin,Total 0.3 mg/dL (0.3-1.0); Calcium 6.9 mg/dL (8.6-10.3); Globulin 2.5 g/dL (2.4-3.5); Magnesium 1.3 mg/dL (1.6-2.6); Phosphorous 2.8 mg/dL (2.7-4.5); Potassium 1.9 mEq/L (3.5-5.1); Total Protein 5.6 g/dL (6.4-8.9); Troponin I 0.14 ng/mL (< 0.04)
[2020-08-19] MEDS ORDERED: Potassium Chloride 40 MEQ, Lidocaine 1% 2 ML in 0.9 % Sodium Chloride 500 ML IVPB ONE (01:23)
[2020-08-19] MEDS ORDERED: Magnesium Sulfate 1 GM/102 ML PIGGYBACK IVPB ONE (01:24)
[2020-08-19] MEDS ORDERED: 0.9 % Sodium Chloride 1,000 ML IVC ONE (01:44)
[2020-08-19 02:26] LABS: Hematocrit 21.4 % (35.3-44.9); Hemoglobin 6.9 g/dL (11.5-15.4); Mean Corpuscular HGB Conc 32.2 g/dL (31.6-35.5); Mean Corpuscular Hemoglobin 23.2 pg (28.0-33.3); Mean Corpuscular Volume 72.1 fL (83.0-100.0); Platelet Count 442 K/mcL (140-400); Red Blood Count 2.97 M/mcL (3.82-4.97); Red Cell Distribution Width 15.9 % (11.5-14.5); White Blood Count 7.3 K/mcL (4.3-11.1)
[2020-08-19] MEDS: Pantoprazole 40 MG VIAL IVP SCH ×2 (02:31→14:27)
[2020-08-19 02:51] LABS: Magnesium 1.3 mg/dL (1.6-2.6); Potassium 1.8 mEq/L (3.5-5.1)
[2020-08-19] MEDS ORDERED: 0.9 % Sodium Chloride 250 ML IVC SCH (03:15)
[2020-08-19] MEDS ORDERED: 0.9 % Sodium Chloride w KCl 40 MEQ/1,000 ML MLS IVC SCH (10:30)
[2020-08-19 12:34] LABS: % Iron Saturation 40 % (15-50); Iron 156 mcg/dL (50-170); Transferrin 278 mg/dL (203-362)
[2020-08-19 12:59] LABS: Folate 13.9 ng/mL (3.0-16.0)
[2020-08-19] MEDS ORDERED: Cyanocobalamin (B-12) 1,000 MCG/ML VIAL SQ ONE (13:58)
[2020-08-19 14:22] LABS: Hematocrit 26.5 % (35.3-44.9); Hemoglobin 8.4 g/dL (11.5-15.4)
[2020-08-19] MEDS: 0.9 % Sodium Chloride 1,000 ML IVC SCH (14:56)
[2020-08-19] MEDS ORDERED: SODIUM CHLORIDE/NAHCO3/KCL/PEG 4,000 ML SOLN.RECON PO ONE (17:00)
[2020-08-19 19:14] LABS: Potassium 2.8 mEq/L (3.5-5.1); Troponin I 0.09 ng/mL (< 0.04)
[2020-08-20] MEDS: Pantoprazole 40 MG VIAL IVP SCH ×2 (00:57→13:14)
[2020-08-20] MEDS: 0.9 % Sodium Chloride 1,000 ML IVC SCH ×4 (00:58→21:06)
[2020-08-20 07:43] LABS: Hematocrit 28.8 % (35.3-44.9); Hemoglobin 8.7 g/dL (11.5-15.4); Mean Corpuscular HGB Conc 30.2 g/dL (31.6-35.5); Mean Corpuscular Hemoglobin 23.8 pg (28.0-33.3); Mean Platelet Volume 9.2 fL (9.4-12.4); Platelet Count 498 K/mcL (140-400); Red Blood Count 3.66 M/mcL (3.82-4.97); Red Cell Distribution Width 16.9 % (11.5-14.5); White Blood Count 7.6 K/mcL (4.3-11.1)
[2020-08-20 07:51] LABS: Mean Corpuscular Volume 78.7 fL (83.0-100.0)
[2020-08-20 08:26] LABS: Potassium 2.9 mEq/L (3.5-5.1)
[2020-08-20 08:54] LABS: Calcium 7.3 mg/dL (8.6-10.3); Magnesium 2.2 mg/dL (1.6-2.6); Phosphorous 2.6 mg/dL (2.7-4.5)
[2020-08-20] MEDS ORDERED: Letrozole 2.5 MG TABLET PO SCH (09:00)
[2020-08-20] MEDS: Cholecalciferol (D-3) 1,000 UNIT (25MCG) TABLET PO SCH (09:57)
[2020-08-20] MEDS: Cyanocobalamin (B-12) 1,000 MCG/ML VIAL SQ SCH (09:58)
[2020-08-20] MEDS ORDERED: Lidocaine -MPF 2% 5 ML VIAL SQ ONE (11:06)
[2020-08-20] MEDS ORDERED: *HR* Propofol 500 MG/50 ML BOTTLE IVP ONE (11:06)
[2020-08-20 14:16] LABS: Adenovirus Not Detected (Not Detect); Bordetella Pertussis Not Detected (Not Detect); Chlamydophila pneumoniae Not Detected (Not Detect); Coronavirus 229E Not Detected (Not Detect); Coronavirus HKU1 Not Detected (Not Detect); Coronavirus NL63 Not Detected (Not Detect); Coronavirus OC43 Not Detected (Not Detect); Human Metapneumovirus Not Detected (Not Detect); Human Rhinovirus/Enterovirus Not Detected (Not Detect); Influenza A Subtype 2009 H1 Not Detected (Not Detect); Influenza B Not Detected (Not Detect); Mycoplasma pneumoniae Not Detected (Not Detect); Parainfluenza Virus 1 Not Detected (Not Detect); Parainfluenza Virus 2 Not Detected (Not Detect); Parainfluenza Virus 3 Not Detected (Not Detect); Parainfluenza Virus 4 Not Detected (Not Detect); Respiratory Syncytial Virus Not Detected (Not Detect); SARS-CoV-2 Not Detected (Not Detect)
[2020-08-20 17:51] LABS: Calcium 7.2 mg/dL (8.6-10.3); Potassium 3.3 mEq/L (3.5-5.1)
[2020-08-21 01:23] LABS: Hematocrit 26.5 % (35.3-44.9); Hemoglobin 8.2 g/dL (11.5-15.4); Mean Corpuscular HGB Conc 30.9 g/dL (31.6-35.5); Mean Corpuscular Hemoglobin 24.3 pg (28.0-33.3); Mean Corpuscular Volume 78.4 fL (83.0-100.0); Mean Platelet Volume 8.8 fL (9.4-12.4); Platelet Count 460 K/mcL (140-400); Red Blood Count 3.38 M/mcL (3.82-4.97); White Blood Count 11.1 K/mcL (4.3-11.1)
[2020-08-21 01:41] LABS: Calcium 7.2 mg/dL (8.6-10.3); Magnesium 1.7 mg/dL (1.6-2.6); Phosphorous 2.5 mg/dL (2.7-4.5)
[2020-08-21] MEDS: Pantoprazole 40 MG VIAL IVP SCH ×2 (01:41→13:00)
[2020-08-21 02:26] LABS: Basophils % 0.3 %; Eosinophils # 0.2 K/mcL (0.0-0.6); Eosinophils % 1.4 %; Immature Granulocytes % 0.7 % (0-4); Lymphocytes # 0.8 K/mcL (0.6-4.6); Lymphocytes % 6.9 %; Monocytes # 0.6 K/mcL (0.0-1.3); Monocytes % 5.4 %; Segmented Neutrophils % 85.3 %
[2020-08-21 06:27] LABS: Bilirubin,Direct 0.1 mg/dL (0.0-0.2); Bilirubin,Indirect 0.3 mg/dL (0.0-1.0); Bilirubin,Total 0.4 mg/dL (0.3-1.0)
[2020-08-21] MEDS: Cyanocobalamin (B-12) 1,000 MCG/ML VIAL SQ SCH (09:17)
[2020-08-21] MEDS: Cholecalciferol (D-3) 1,000 UNIT (25MCG) TABLET PO SCH (09:17)
[2020-08-21] MEDS: 0.9 % Sodium Chloride 1,000 ML IVC SCH ×4 (09:18→17:56)
[2020-08-21 11:41] LABS: Bilirubin,Urine Negative (Negative); Blood,Urine Trace (Negative); Clarity,Urine Clear (Clear); Color,Urine Light-Yellow (Yellow); Glucose,Urine (UA) Normal (Normal); Ketones,Urine Negative (Negative); Leukocyte Esterase,Urine Moderate (Negative); Mucus,Urine Few per lpf (None-Few); Nitrite,Urine Negative (Negative); Protein,Urine 30 mg/dL (Neg-Trace); RBC,Urine 0-3 per hpf (0-3); Specific Gravity,Urine 1.011 (1.010-1.025); Squamous Epithelial Cell,Urine Few per hpf (None-Few); Urobilinogen,Urine Normal (Normal)
[2020-08-21] MEDS: cefTRIAXone 1,000 MG in 0.9 % Sodium Chloride Mini Bag 100 ML IVPB SCH (17:51)
[2020-08-22] MEDS: Pantoprazole 40 MG VIAL IVP SCH ×2 (01:38→13:00)
[2020-08-22 03:13] LABS: Calcium 7.3 mg/dL (8.6-10.3); Magnesium 1.5 mg/dL (1.6-2.6); Phosphorous 2.6 mg/dL (2.7-4.5); Potassium 3.1 mEq/L (3.5-5.1)
[2020-08-22 05:41] LABS: Hematocrit 25.7 % (35.3-44.9); Hemoglobin 7.7 g/dL (11.5-15.4); Mean Corpuscular Hemoglobin 23.6 pg (28.0-33.3); Mean Corpuscular Volume 78.8 fL (83.0-100.0); Mean Platelet Volume 9.4 fL (9.4-12.4); Platelet Count 439 K/mcL (140-400); Red Blood Count 3.26 M/mcL (3.82-4.97); Red Cell Distribution Width 17.1 % (11.5-14.5); White Blood Count 8.8 K/mcL (4.3-11.1)
[2020-08-22] MEDS: 0.9 % Sodium Chloride 1,000 ML IVC SCH ×3 (07:21→09:34)
[2020-08-22] MEDS: Cyanocobalamin (B-12) 1,000 MCG/ML VIAL SQ SCH (09:29)
[2020-08-22] MEDS: Cholecalciferol (D-3) 1,000 UNIT (25MCG) TABLET PO SCH (09:31)
[2020-08-22] MEDS ORDERED: Sodium Bicarbonate 150 MEQ in D5% in Water 1,000 ML IVC SCH ×2 (12:45→14:15)
[2020-08-22] MEDS ORDERED: Diphenoxylate/Atropine 1 TAB TABLET PO PRN (14:00)
[2020-08-22] MEDS: aMILoride 5 MG TABLET PO SCH (14:00)
[2020-08-22] MEDS: cefTRIAXone 1,000 MG in 0.9 % Sodium Chloride Mini Bag 100 ML IVPB SCH (16:08)
[2020-08-22 16:51] LABS: Adenovirus F 40/41 PCR Not detected (Not detect); Astrovirus PCR Not detected (Not detect); C.difficile Toxin A/B Gene PCR Not detected (Not detect); Campylobacter by PCR Not detected (Not detect); Cryptosporidium by PCR Not detected (Not detect); Cyclospora cayetanensis PCR Not detected (Not detect); E. coli O157 by PCR Not detected (Not detect); Entamoeba histolytica PCR Not detected (Not detect); Enteroaggregative E.coli(EAEC) Not detected (Not detect); Enteropathogenic E.coli(EPEC) Not detected (Not detect); Enterotoxigenic E.coli (ETEC) Not detected (Not detect); Giardia lamblia PCR Not detected (Not detect); Norovirus GI/GII PCR Not detected (Not detect); Plesiomonas shigelloides PCR Not detected (Not detect); Rotavirus A PCR Not detected (Not detect); Salmonella PCR Not detected (Not detect); Sapovirus PCR Not detected (Not detect); Shig/EnteroinvasiveE coli EIEC Not detected (Not detect); Shigalike tox-prod E coli STEC Not detected (Not detect); Vibrio PCR Not detected (Not detect); Vibrio cholerae PCR Not detected (Not detect); Yersinia enterocolitica PCR Not detected (Not detect)
[2020-08-23] MEDS: Pantoprazole 40 MG VIAL IVP SCH ×2 (01:56→12:03)
[2020-08-23 07:31] LABS: Calcium 7.8 mg/dL (8.6-10.3); Magnesium 1.9 mg/dL (1.6-2.6); Phosphorous 2.5 mg/dL (2.7-4.5); Potassium 3.6 mEq/L (3.5-5.1)
[2020-08-23] MEDS: Cholecalciferol (D-3) 1,000 UNIT (25MCG) TABLET PO SCH (08:18)
[2020-08-23] MEDS: Cyanocobalamin (B-12) 1,000 MCG/ML VIAL SQ SCH (08:18)
[2020-08-23] MEDS: aMILoride 5 MG TABLET PO SCH (08:19)
[2020-08-23 09:26] LABS: Total Volume 24 Hour,Urine 2.25 Liters (0.60-1.60)
[2020-08-23 09:38] LABS: Potassium,Urine 8.5 mEq/L
[2020-08-23 10:00] LABS: Hematocrit 29.2 % (35.3-44.9); Hemoglobin 8.8 g/dL (11.5-15.4); Mean Corpuscular HGB Conc 30.1 g/dL (31.6-35.5); Mean Corpuscular Hemoglobin 23.7 pg (28.0-33.3); Mean Platelet Volume 9.3 fL (9.4-12.4); Platelet Count 437 K/mcL (140-400); Red Blood Count 3.71 M/mcL (3.82-4.97); White Blood Count 9.1 K/mcL (4.3-11.1)
[2020-08-23 10:03] LABS: Mean Corpuscular Volume 78.7 fL (83.0-100.0)
[2020-08-23] MEDS: cefTRIAXone 1,000 MG in 0.9 % Sodium Chloride Mini Bag 100 ML IVPB SCH (16:00)
[2020-08-23] MEDS ORDERED: Sodium Bicarbonate 150 MEQ in D5% in Water 1,000 ML IVC SCH ×2 (16:45→17:00)
[2020-08-24] MEDS: Pantoprazole 40 MG VIAL IVP SCH ×2 (00:42→14:00)
[2020-08-24 06:34] LABS: Hematocrit 26.8 % (35.3-44.9); Hemoglobin 8.2 g/dL (11.5-15.4); Mean Corpuscular HGB Conc 30.6 g/dL (31.6-35.5); Mean Corpuscular Hemoglobin 24.6 pg (28.0-33.3); Mean Corpuscular Volume 80.2 fL (83.0-100.0); Mean Platelet Volume 9.3 fL (9.4-12.4); Platelet Count 347 K/mcL (140-400); Red Blood Count 3.34 M/mcL (3.82-4.97); Red Cell Distribution Width 16.7 % (11.5-14.5); White Blood Count 8.6 K/mcL (4.3-11.1)
[2020-08-24 06:53] LABS: Calcium 7.7 mg/dL (8.6-10.3); Magnesium 1.6 mg/dL (1.6-2.6); Phosphorous 2.4 mg/dL (2.7-4.5); Potassium 3.6 mEq/L (3.5-5.1)
[2020-08-24] MEDS: Cholecalciferol (D-3) 1,000 UNIT (25MCG) TABLET PO SCH (08:04)
[2020-08-24] MEDS: aMILoride 5 MG TABLET PO SCH (08:04)
[2020-08-24] MEDS ORDERED: Cyanocobalamin (B-12) 1,000 MCG TABLET PO SCH (09:00)
[2020-08-24] MEDS ORDERED: *HR* OxyCODONE Immed Rel 5 MG TABLET PO PRN (16:02)
[2020-08-24] MEDS ORDERED: *HR* HYDROmorphone PF 0.5 MG/0.5 ML SYRINGE IVP PRN (16:02)
[2020-08-24] MEDS ORDERED: Lidocaine -MPF 2% 2 ML VIAL ONE (16:23)
[2020-08-24] MEDS ORDERED: Ondansetron 4 MG/2 ML VIAL ONE (16:23)
[2020-08-24] MEDS ORDERED: Dexamethasone 4 MG/ML VIAL ONE (16:23)
[2020-08-24] MEDS ORDERED: *HR* Propofol 200 MG/20 ML VIAL IVP ONE (16:23)
[2020-08-24] MEDS ORDERED: *HR* FentaNYL (PF) 100 MCG/2 ML VIAL ONE (16:23)
[2020-08-24] MEDS ORDERED: cefTRIAXone 1,000 MG in Water for inj. (sterile) 20 ML IVP ONE (16:30)
[2020-08-24] MEDS ORDERED: Isovue-300 50ML VIAL ONE (16:38)
[2020-08-24] MEDS ORDERED: *HR* Succinylcholine 200 MG/10 ML VIAL IVP ONE (16:56)
[2020-08-24] MEDS ORDERED: EPHEDrine 50 MG/ML VIAL ONE (17:00)
[2020-08-24] MEDS ORDERED: Ondansetron 4 MG/2 ML VIAL IVP PRN (17:26)
[2020-08-24] MEDS ORDERED: Diphenoxylate/Atropine 1 TAB TABLET PO PRN (17:26)
[2020-08-24] MEDS ORDERED: Naloxone 0.4 MG/ML INJ IVP PRN (17:26)
[2020-08-25] MEDS: Pantoprazole 40 MG VIAL IVP SCH ×2 (01:35→13:40)
[2020-08-25 03:06] LABS: Hematocrit 27.6 % (35.3-44.9); Hemoglobin 8.1 g/dL (11.5-15.4); Mean Corpuscular HGB Conc 29.3 g/dL (31.6-35.5); Mean Corpuscular Hemoglobin 23.3 pg (28.0-33.3); Mean Corpuscular Volume 79.5 fL (83.0-100.0); Mean Platelet Volume 9.8 fL (9.4-12.4); Platelet Count 361 K/mcL (140-400); Red Blood Count 3.47 M/mcL (3.82-4.97); Red Cell Distribution Width 16.7 % (11.5-14.5)
[2020-08-25 03:26] LABS: Calcium 7.9 mg/dL (8.6-10.3); Magnesium 1.7 mg/dL (1.6-2.6); Potassium 4.7 mEq/L (3.5-5.1)
[2020-08-25] MEDS ORDERED: Cholecalciferol (D-3) 1,000 UNIT (25MCG) TABLET PO SCH (09:00)
[2020-08-25] MEDS ORDERED: Cyanocobalamin (B-12) 1,000 MCG TABLET PO SCH (09:00)
[2020-08-25] MEDS ORDERED: aMILoride 5 MG TABLET PO SCH (09:00)
[2020-08-25 11:26] VITALS: BP 129/68
[2020-08-26 07:05] LABS: Tissue Transglutaminase IgA <2 U/mL (0-3)
[2020-08-27 10:34] LABS: Tissue Transglutaminase IgG <2 U/mL (0-5)
== END 2020-08-25 17:48 | disposition home or self-care (01) | DRG 659 ==
LOC: 2ANU → SUATTDRO 20:54
PROVIDERS: ADMIT Internal Medicine; ATTEND Internal Medicine